=== PATIENT | male | born 1945 | race Caucasian/White ===

== ENCOUNTER 2016-09-07 18:08 | Inpatient (IN) | payer OTHER, MEDICARE ==
[~2016-09-07] VITALS: Ht 182.9 cm; Wt 104.3 kg
--- NOTE | 2016-09-07 18:20 | NUR ---
PT TO ED FOR ABD PAIN AND VOMITING, REPORTING HE ATE A BAGEL AND CREAM CHEESE AROUND 7 AM YESTERDAY MORNING AND BEGAN VOMITING SHORTLY AFTER 8AM. REPORTING HE VOMITING IN EXCESS OF TEN TIMES. NO VOMITING TODAY BUT STATING HE HAS BEEN HAVING SIG ABD PAIN, PT REPORTING PAIN "FEELS BETTER DEPENDING ON WHAT POSITION IM IN." LNBM YESTERDAY. DENIES BLACK OR BLOODY STOOLS. DENIES CP, SOB, [place], ARM PAIN, NECK/JAW PAIN.
--- NOTE | 2016-09-07 18:25 | NUR ---
REVIEWED PATIENT WITH DR JOSHI, DR JOSHI REQUESTING A NON-CONTRAST CT OF THE ABD BE ORDERED.
[2016-09-07 18:56] LABS: ABSOLUTE BASOPHIL COUNT 0 /CUMM (0.0-0.2); ABSOLUTE EOSINOPHIL COUNT 0 /CUMM (0.0-0.7); ABSOLUTE LYMPH COUNT 0.9 /CUMM (1.2-3.4); ABSOLUTE MONOCYTE COUNT 0.8 /CUMM (0.10-0.60); BASOPHIL % 0 % (0.0-2.0); EOSINOPHIL % 0 % (0-5); HEMATOCRIT 46.6 % (42-52); MEAN CORPUSCULAR HGB 32.7 PG (27.0-31.0); MEAN CORPUSCULAR HGB CONC 33.5 G/DL (33.0-37.0); MEAN CORPUSCULAR VOLUME 97.6 FL (80.0-94.0); MEAN PLATELET VOLUME 8.9 FL (7.4-10.4); PLATELET COUNT 231 /CUMM (130-400); RBC DISTRIBUTION WIDTH 13.6 % (11.5-14.5); RED BLOOD CELL CT 4.77 /CUMM (4.70-6.10); WHITE BLOOD CELL COUNT 17.7 /CUMM (4.8-10.8)
[2016-09-07 18:57] LABS: GRANULOCYTE % 90.2 % (42.2-75.2)
--- NOTE | 2016-09-07 19:55 | ED GI/GU/ABDOMINAL COMPLAINT ---
History of Present Illness General Chief Complaint: Abdominal Pain/Flank Pain Stated Complaint: VOMITING YESTERDAY, ABD PAIN Source: patient, family Exam Limitations: no limitations Vital Signs & Intake/Output Vital Signs & Intake/Output Vital Signs Date Time Temp Pulse Resp B/P Pulse O2 O2 Flow FiO2 Ox Delivery Rate 09/07 2351 98.3 67 20 150/64 92 Room Air 09/07 2256 99.1 75 18 144/68 09/07 2223 99.1 75 18 144/68 94 Room Air 09/07 2031 99.5 72 18 148/71 93 Room Air 09/07 1820 98.7 101 18 126/76 99 Room Air ED Intake and Output 09/08 0000 09/07 1200 Intake Total 1000 Output Total Balance 1000 Intake, IV 1000 Patient 230 lb Weight Allergies Coded Allergies: No Known Allergies (09/07/16) Reconcile Medications Amlodipine Besylate/Benazepril (Amlodipine-Benazepril 5-40 MG) 5 MG-40 MG CAPSULE 1 CAP PO DAILY HTN (Reported) Aspirin (Aspirin*) 81 MG TAB.CHEW 1 TAB PO DAILY CARDIAC (Reported) Diclofenac Sodium 75 MG TABLET.DR 1 TAB PO BID PAIN (Reported) Fluoxetine HCl 20 MG CAPSULE 1 CAP PO DAILY MENTAL HEALTH (Reported) Metoprolol Tartrate 25 MG TABLET 1 TAB PO BID HTN (Reported) Triage Note: PT TO ED FOR ABD PAIN AND VOMITING, REPORTING HE ATE A BAGEL AND CREAM CHEESE AROUND 7 AM YESTERDAY MORNING AND BEGAN VOMITING SHORTLY AFTER 8AM. REPORTING HE VOMITING IN EXCESS OF TEN TIMES. NO VOMITING TODAY BUT STATING HE HAS BEEN HAVING SIG ABD PAIN, PT REPORTING PAIN "FEELS BETTER DEPENDING ON WHAT POSITION IM IN." LNBM YESTERDAY. DENIES BLACK OR BLOODY STOOLS. DENIES CP, SOB, [place], ARM PAIN, NECK/JAW PAIN. Triage Nurses Notes Reviewed? yes Onset: Abrupt Duration: day(s): (2) Timing: multiple episodes today Quality/Severity: fullness, severe Location: epigastric Radiation: no radiation Activities at Onset: eating Prior Abdominal Problems: none Modifying Factors: Worsens With: other (LYING ON HIS SIDES). Associated Symptoms: abdominal pain, nausea/vomiting, DISTENTION HPI: This 71-year-old male who presents to the ER with chief complaint of abdominal pain nausea and vomiting that began yesterday after eating a bagel with cream cheese. He reports feeling like a rock in his stomach 30 minutes after eating and then within half an hour had multiple episodes of wretching and vomiting. By 2 pm the vomiting had stopped but states the pain has been constant. He was only able to tolerate small sips of fluid at a time. No fever or chills. Last BM yesterday. Past History Travel History Traveled to [place] past 21 day No Medical History Any Pertinent Medical History? see below for history Neurological: NONE EENT: NONE Cardiovascular: NONE, hypertension Respiratory: NONE Gastrointestinal: ACID REFLUX Hepatic: NONE Renal: NONE Musculoskeletal: NONE Psychiatric: NONE Endocrine: NONE Blood Disorders: NONE Cancer(s): NONE Surgical History Surgical History: none Psychosocial History What is your primary language [place] Tobacco Use: Never used ETOH Use: heavy use (2 DRINKS PER NIGHT) Illicit Drug Use: denies illicit drug use Family History Hx Contributory? No Review of Systems Review of Systems Constitutional: Denies: chills, fever. EENTM: Reports: no symptoms. Respiratory: Denies: cough, short of breath. Cardiovascular: Reports: no symptoms. GI: Reports: abdominal pain, nausea, vomiting. Denies: distention. Genitourinary: Reports: no symptoms. Musculoskeletal: Denies: back pain. Skin: Reports: no symptoms. Neurological/Psychological: Reports: no symptoms. Hematologic/Endocrine: Denies: bruising, bleeding, polyuria, polydipsia. Immunologic/Allergic: Denies: splenectomy. All Other Systems: Reviewed and Negative Physical Exam Physical Exam General Appearance: well developed/nourished, alert, awake, moderate distress Head: atraumatic, normal appearance Eyes: Bilateral: normal appearance, PERRL, EOMI. Ears, Nose, Throat, Mouth: hearing grossly normal, DRY MUCUS MEMBRANES Neck: normal inspection, supple, full range of motion Respiratory: normal breath sounds, chest non-tender, no respiratory distress Cardiovascular: tachycardia Peripheral Pulses: 2+ radial (R), 2+ radial (L) Gastrointestinal: FIRM, DISTENDED, TYMPANIC, PAIN EPIGASTRIC NEGATIVE MURPHYS Extremities: normal range of motion Neurologic/Psych: no motor/sensory deficits, awake, alert, oriented x 3 Skin: intact, normal color, warm/dry Core Measures ACS in differential dx? No Severe Sepsis Present: No Septic Shock Present: No Progress Differential Diagnosis: biliary colic, cholecystitis, gastritis, hepatitis, hernia, pancreatitis, PUD/GERD, SBO, ILEUS Plan of Care: Orders Procedure Date/time Status Nothing by Mouth 09/08 B Active MRI-ABDOMEN 09/08 08 Active XRY-PORTABLE CHEST XRAY 09/08 06 Active HIGH SENSITIVITY CRP 09/08 06 Active HEPATIC FUNCTION PANEL 09/08 06 Active CBC WITHOUT DIFFERENTIAL 09/08 0600 Active BASIC ELECTROLYTES PLUS BUN&CR 09/08 06 Active Vital Signs 09/07 2324 Active Teach/Educate 09/07 2324 Active Pain Treatment and Response 09/07 2324 Active Nutritional Intake, Monitor 09/07 2324 Active Isolation 09/07 2324 Active Intake & Output 09/07 2324 Active Patient Care Conference 09/07 2324 Active Activity/Ambulation 09/07 2324 Active Pathway - chart 09/08 2203 Active House Staff 09/08 2203 Active Patient Data 09/07 2106 Active Admit to inpatient 09/07 2101 Active Vital Signs 09/07 2101 Active Code Status 09/07 2101 Active Intake & Output 09/07 2100 Active Add-on Test (ER Only) 09/08 2051 Active Add-on Test (ER Only) 09/07 204 Active LIPASE 09/07 1837 Complete LDH (LACT ACID DEHYDROGENASE) 09/07 1837 Complete DIRECT BILIRUBIN 09/07 1837 Complete AMYLASE 09/07 1837 Complete TROPONIN LEVEL 09/07 1821 Complete LACTIC ACID 09/07 1821 Complete COMPREHENSIVE METABOLIC PANEL 09/07 1821 Complete CBC WITHOUT DIFFERENTIAL 09/07 1821 Complete EKG 09/07 1811 Active XRY-PORTABLE CHEST XRAY 09/07 UNK Active Lab Add-on Test 09/07 UNK Active CIWA 09/07 UNK Active Current Medications Sig/Mariana Start time Last Medication Dose Stop Time Status Admin Enoxaparin Sodium 40 MG DAILY 09/08 1000 AC (Lovenox) Folic Acid 1 MG DAILY 09/08 1000 AC (Folic Acid) Lorazepam 0 Q1P PRN 09/07 2300 AC (Ativan) Thiamine HCl 500 MG ONCE ONE 09/07 2300 CAN (Vitamin B-1) 09/07 230 Diphenhydramine HCl 25 MG Q6P PRN 09/07 2215 AC (Benadryl) Hydromorphone HCl 0.5 MG Q4P PRN 09/07 2215 AC (Dilaudid) Ondansetron HCl 4 MG Q6P PRN 09/07 2214 AC (Zofran) Laboratory Tests 09/07/162120: Lactic Acid Cancelled 09/07/16 1837: Anion Gap 13, Estimated GFR > 60, BUN/Creatinine Ratio 20.0, Glucose 110 H, Lactic Acid 1.4, Calcium 9.0, Total Bilirubin 1.4 H, Direct Bilirubin 0.4, AST 200 H, ALT 364 H, Alkaline Phosphatase 84, Lactate Dehydrogenase 907 H, Troponin I 0.02, Total Protein 7.0, Albumin 4.0, Globulin 3.0, Albumin/Globulin Ratio 1.3, Amylase 515 H, Lipase 7376 H, CBC w Diff NO MAN DIFF REQ, RBC 4.77, MCV 97.6 H, MCH 32.7 H, RDW 13.6, MPV 8.9, Gran % 90.2 H, Lymphocytes % 5.2 L, Monocytes % 4.6, Eosinophils % 0, Basophils % 0 L, Absolute Granulocytes 16.0 H, Absolute Lymphocytes 0.9 L, Absolute Monocytes 0.8 H, Absolute Eosinophils 0, Absolute Basophils 0, PUBS MCHC 33.5 CT SCAN CONSISTENT WITH PANCREATITITS/PERIPANCREATIC FLUID COLLECTIONS. AMYLASE /LIPASE ADDED ON. IV MORPHINE GIVEN FOR PAIN CONTROL. NPO. ADMITTED TO HOSPITALIST SERVICE. 10:[address] SUMI COCHRAN FOR SURGICAL CONSULT. (MANDY LOVETT,JANET) Diagnostic Imaging: Viewed by Me: CT Scan, Ultrasound. Discussed w/RAD: CT Scan, Ultrasound. Radiology Impression: PATIENT: ILENE BRYANT PRESENT AGE: 71 PATIENT ACCOUNT NO: [id number] : 43 LOCATION: [facility] ORDERING PHYSICIAN: JANET GALVAN MD SERVICE DATE: 09/07/16 EXAM TYPE: US - US- LIMITED ABDOMEN EXAMINATION: US ABDOMEN LIMITED CLINICAL INFORMATION: Pancreatitis and elevated LFTs. Assess for gallstones.. COMPARISON: CT scan of the abdomen obtained earlier 09/07/2016. TECHNIQUE: Real-time imaging of the right upper quadrant abdominal viscera. FINDINGS: PANCREAS: The pancreas is not visualized due to overlying bowel gas and edema (demonstrated on CT scan). LIVER : The liver demonstrates normal size, contour and echogenicity. No focal lesion or intrahepatic biliary duct dilatation. GALLBLADDER: The gallbladder is poorly distended. There are multiple echogenic calculi which appear impacted. Shadowing from the stones makes differentiation of the individual stones difficult. There is echogenic bile. The gallbladder wall is slightly thickened measuring 0.3 cm. There is no definite pericholecystic fluid. COMMON BILE DUCT: Normal in caliber measuring 0.5 cm in diameter. RIGHT KIDNEY: There is no hydronephrosis. There are no renal calculi or focal parenchymal lesions. The kidney measures 11.3 cm in maximum dimension. FREE FLUID: Difficult to assess due to body habitus and bowel gas. IMPRESSION: 1. The study demonstrates multiple echogenic gallbladder calculi. There is echogenic bile and the gallbladder wall is slightly thickened. 2. The common bile duct has normal caliber. DICTATED BY: NATALIYA GARRISON MD DATE/ TIME DICTATED:09/07/162150 CASH CROP FARMER:KATYA DATE/TIME TRANSCRIBED: 09/07/162150 CONFIDENTIAL, DO NOT COPY WITHOUT APPROPRIATE AUTHORIZATION. < Electronically signed in Other Vendor System> SIGNED BY: NATALIYA GARRISON MD [id number], PATIENT: ILENE BRYANT PRESENT AGE: 71 PATIENT ACCOUNT NO: [id number] : 43 LOCATION: [facility] ORDERING PHYSICIAN: LAURO JOSHI DO SERVICE DATE: 09/07/16 EXAM TYPE: CAT - CT ABD & PELVIS W/O IV CONTRAS EXAMINATION: CT ABDOMEN AND PELVIS WITHOUT CONTRAST CLINICAL INFORMATION: 71-year-old male patient who has been vomiting for 24 hours. Abdominal pain. COMPARISON: None pertinent. TECHNIQUE: Multidetector volumetric imaging was performed from the superior aspect of the liver through the pubic symphysis. Sagittal and coronal reformatted images were obtained on the technologist's workstation. DLP: 683 mGy-cm FINDINGS: Insurance Collector view: The bowel pattern is consistent with a so-called "colon cut off" sign seen in patients with acute pancreatitis. Please note that the study is compromised by the lack of IV contrast. LUNG BASES: The visualized lung bases are unremarkable. There is no pleural effusion. The patient has a small hiatal hernia. LIVER, GALLBLADDER, AND BILIARY TREE: The liver is normal in size, shape, and attenuation. No biliary ductal dilatation is present. A 1 cm hypodense nodule in Couinaud segment 5 the liver cannot be characterized further. The gallbladder is unremarkable with no evidence of radiopaque gallstones, gallbladder wall thickening, or obvious pericholecystic inflammatory changes. PANCREAS: The pancreas is normal in size. However, there is an abnormal amount of peripancreatic effusion extending to the transverse mesocolon, the paraduodenal space as well as the anterior pararenal spaces of the retroperitoneum. Pancreatic fluid also extends towards the right inguinal canal. Small amounts of ascites are present in the peritoneal cavity. There is no pseudocyst formation. Enhancement characteristics of the pancreas would require IV contrast. SPLEEN: Unremarkable. ADRENAL GLANDS: Unremarkable. KIDNEYS AND URETERS: The kidneys are normal in size, shape, and attenuation. No hydronephrosis, hydroureter, or calculi seen. No perinephric stranding. BLADDER: Partially filled. GASTROINTESTINAL TRACT: Numerous diverticula arise from the sigmoid and descending colon. The colon cut off sign is caused by dissection of pancreatic enzymes to the level of the true splenic flexure. Series 2, image 45. The stomach, small bowel, and appendix are normal. ABDOMINAL WALL: A small fat- containing umbilical hernia is present. LYMPH NODES: No bulk adenopathy is seen. A small lymph node is adjacent to the true splenic flexure. Series 602, image 60. VASCULAR: Unremarkable. PELVIC VISCERA: Unremarkable. OSSEOUS STRUCTURES: There is nearly complete fusion of the vertebral bodies at L3-L4 due to disc disease. There is partial sacralization of L5. IMPRESSION: Acute pancreatitis with spread of pancreatic enzymes to multiple sites as described above. DICTATED BY: SAMIRA COLEMAN MD DATE/TIME DICTATED:09/07/162004 CASH CROP FARMER: KATYA DATE/TIME TRANSCRIBED:09/07/162004 CONFIDENTIAL, DO NOT COPY WITHOUT APPROPRIATE AUTHORIZATION. <Electronically signed in Other Vendor System> SIGNED BY: SAMIRA COLEMAN MD 09/07/162023 Initial ED EKG: none Departure Departure Time of Disposition: 2101 Disposition: STILL A PATIENT Condition: Stable Clinical Impression Primary Impression: Pancreatitis Secondary Impressions: Gallstones, Transaminitis Referrals: JACKY LORENZANA MD (PCP/Family) Departure Forms: Customer Survey General Discharge Information Admission Note Spoke With: DG VELAZQUEZ MD Documentation of Exam: Documentation of any treatments & extenuating circumstances including Concerns Regarding Discharge (functional status, medication knowledge or non-compliance, living conditions, etc.) that warrant an admission rather than observation: [IV FLUIDS, PAIN CONTROL, NPO, MONITOR I/O, F/U MRCP ABDOMEN, IV ABX ORDERED BY HOUSESTAFF, SURGICAL CONSULT DR JONAS]
--- NOTE | 2016-09-07 20:09 | NUR ---
PT TO ROOM 10, SEEN BY DR GALVAN
--- NOTE | 2016-09-07 20:24 | CT SCAN REPORT ---
EXAMINATION: CT ABDOMEN AND PELVIS WITHOUT CONTRAST CLINICAL INFORMATION: 71-year-old male patient who has been vomiting for 24 hours. Abdominal pain. COMPARISON: None pertinent. TECHNIQUE: Multidetector volumetric imaging was performed from the superior aspect of the liver through the pubic symphysis. Sagittal and coronal reformatted images were obtained on the technologist's workstation. DLP: 683 mGy-cm FINDINGS: Supervisor Industrial Garment view: The bowel pattern is consistent with a so-called "colon cut off" sign seen in patients with acute pancreatitis. Please note that the study is compromised by the lack of IV contrast. LUNG BASES: The visualized lung bases are unremarkable. There is no pleural effusion. The patient has a small hiatal hernia. LIVER, GALLBLADDER, AND BILIARY TREE: The liver is normal in size, shape, and attenuation. No biliary ductal dilatation is present. A 1 cm hypodense nodule in Couinaud segment 5 the liver cannot be characterized further. The gallbladder is unremarkable with no evidence of radiopaque gallstones, gallbladder wall thickening, or obvious pericholecystic inflammatory changes. PANCREAS: The pancreas is normal in size. However, there is an abnormal amount of peripancreatic effusion extending to the transverse mesocolon, the paraduodenal space as well as the anterior pararenal spaces of the retroperitoneum. Pancreatic fluid also extends towards the right inguinal canal. Small amounts of ascites are present in the peritoneal cavity. There is no pseudocyst formation. Enhancement characteristics of the pancreas would require IV contrast. SPLEEN: Unremarkable. ADRENAL GLANDS: Unremarkable. KIDNEYS AND URETERS: The kidneys are normal in size, shape, and attenuation. No hydronephrosis, hydroureter, or calculi seen. No perinephric stranding. BLADDER: Partially filled. GASTROINTESTINAL TRACT: Numerous diverticula arise from the sigmoid and descending colon. The colon cut off sign is caused by dissection of pancreatic enzymes to the level of the true splenic flexure. Series 2, image 45. The stomach, small bowel, and appendix are normal. ABDOMINAL WALL: A small fat-containing umbilical hernia is present. LYMPH NODES: No bulk adenopathy is seen. A small lymph node is adjacent to the true splenic flexure. Series 602, image 60. VASCULAR: Unremarkable. PELVIC VISCERA: Unremarkable. OSSEOUS STRUCTURES: There is nearly complete fusion of the vertebral bodies at L3-L4 due to disc disease. There is partial sacralization of L5. IMPRESSION: Acute pancreatitis with spread of pancreatic enzymes to multiple sites as described above.
--- NOTE | 2016-09-07 20:31 | NUR ---
IV EST AND IVF INFUSING. PER DR GALVAN REPEAT LACTIC NOT NEEDED.
--- NOTE | 2016-09-07 20:50 | NUR ---
DR GALVAN AT BEDSIDE TO DISCUSS RESULTS/PLAN
[2016-09-07] MEDS ORDERED: DICLOFENAC SODI75 M2 PO (21:39)
[2016-09-07] MEDS ORDERED: FLUOXETINE HCL20 M2 PO (21:40)
[2016-09-07] MEDS ORDERED: ASPIRIN81 M4 PO (21:40)
[2016-09-07] MEDS ORDERED: METOPROLOL TART25 M1 PO (21:40)
[2016-09-07] MEDS ORDERED: AMLODIPINE-BEN1 EAC1 PO (21:40)
--- NOTE | 2016-09-07 21:51 | History & Physical ---
NEIDA HOLLOWAY 09/07/16 2151: General Information and HPI MD Statement: I have seen and personally examined ILENE BRYANT and documented this H&P. The patient is a 71 year old M who presented with a patient stated chief complaint of abdominal pain, nausea and vomiting. Source of Information: patient Exam Limitations: no limitations History of Present Illness: This is a 71-year-old man with past medical history significant for hypertension, acid reflux, chronic everyday alcohol user presented to emergency department with chief complaint of abdominal pain, bloating, nausea, vomiting for 1 day. Patient reports sudden onset abdominal pain for one day. He reports epigastric discomfort, bloating sensation, not radiating to back, 9 out of 10 pain, decreased with leaning forward. Patient also reports nausea and nonbloody emesis. He denies any fever, chills. He denies any diarrhea. He states he ate a bagel and shortly after started having symptoms above. He has no history of same inthe past. He denies any fever or flulike illness. Patient denies any chest pain, racing of heart, shortness of breath, constipation, diarrhea. Denies any change in bladder or bowel habits. Denies any headache, numbness, sensory changes, tingling sensation, weakness. He denies any recent changes to medications. Denies any increased intake of alcohol. Denies any other substance abuse. Denies any past medical history significant for gallstones. Denies any history of hypertriglyceridemia. Denies any other recent infections. Denies any autoimmune history. Denies any trauma to the abdomen. Denies any Scorpion sting. Denies any sick contacts or travel history. Allergies/Medications Allergies: Coded Allergies: No Known Allergies (09/07/16) Home Med list Amlodipine Besylate/Benazepril (Amlodipine-Benazepril 5-40 MG) 5 MG-40 MG CAPSULE 1 CAP PO DAILY HTN (Reported) Aspirin (Aspirin*) 81 MG TAB.CHEW 1 TAB PO DAILY CARDIAC (Reported) Diclofenac Sodium 75 MG TABLET.DR 1 TAB PO BID PAIN (Reported) Fluoxetine HCl 20 MG CAPSULE 1 CAP PO DAILY MENTAL HEALTH (Reported) Metoprolol Tartrate 25 MG TABLET 1 TAB PO BID HTN (Reported) Compliance With Home Meds: GOOD Past History Travel History Traveled to [place] past 21 day No Medical History Neurological: NONE EENT: NONE Cardiovascular: NONE, hypertension Respiratory: NONE Gastrointestinal: ACID REFLUX Hepatic: NONE Renal: NONE Musculoskeletal: NONE Psychiatric: NONE Endocrine: NONE Blood Disorders: NONE Cancer(s): NONE Surgical History Surgical History: none Past Family/Social History Psychosocial History Smoking Status: Never Smoked ETOH Use: heavy use Illicit Drug Use: denies illicit drug use Review of Systems Review of Systems Constitutional: Denies: see HPI, chills, fever, malaise, weakness. EENTM: Denies: no symptoms. Cardiovascular: Denies: chest pain, edema, palpitations, syncope. Respiratory: Denies: cough, hemoptysis, orthopnea, short of breath, sputum production, stridor, wheezing. GI: Reports: abdominal pain, bloating, distention, nausea, vomiting. Denies: constipation, diarrhea, melena, bloody stool. Genitourinary: Denies: no symptoms, discharge, frequency, hematuria. Musculoskeletal: Denies: back pain, joint pain. Skin: Denies: no symptoms. Neurological/Psychological: Denies: anxiety, depressed, dementia, emotional problems, headache, numbness, tingling, tremors. Exam & Diagnostic Data Last 24 Hrs of Vital Signs/I&O Vital Signs Date Time Temp Pulse Resp B/P Pulse O2 O2 Flow FiO2 Ox Delivery Rate 09/07 2351 98.3 67 20 150/64 92 Room Air 09/07 2256 99.1 75 18 144/68 09/07 2223 99.1 75 18 144/68 94 Room Air 09/07 2031 99.5 72 18 148/71 93 Room Air 09/07 1820 98.7 101 18 126/76 99 Room Air Intake & Output 09/08 0800 09/08 0000 09/07 1600 Intake Total 1000 Output Total Balance 1000 Intake, IV 1000 Patient 104.326 kg Weight Physical Exam General Appearance Alert, Oriented X3, Cooperative, No Acute Distress Skin No Rashes, No Breakdown HEENT Atraumatic, PERRLA, EOMI, Mucous Membr. moist/pink Neck Supple, No JVD Lymphatic Axillary nl, Cervical nl Cardiovascular Regular Rate, Normal S1, Normal S2 Lungs Clear to Auscultation Abdomen Normal Bowel Sounds, epigastric tenderness on examination Bukcley sign negative Neurological Normal Speech, Strength at 5/5 X4 Ext, Normal Tone, Sensation Intact, Cranial Nerves 3-12 NL, Reflexes 2+ Extremities No Clubbing, No Cyanosis, No Edema Vascular Normal Pulses Assessment/Plan Assessment: This is a 71-year-old man with past medical history significant for hypertension, acid reflux, chronic everyday alcohol user presented to emergency department with chief complaint of abdominal pain, bloating, nausea, vomiting for 1 day. Vitals in the emergency room-afebrile, tachycardic 101, respiratory rate 18, blood pressure 120/60. Abdomen appears distended but soft. Bowel sounds are present but decreased in all 4 quadrants. He does have some achy discomfort upon palpation in the epigastric area. Buckley sign negative. Labs-leukocytosis 17.7. Liver function tests-total bilirubin 1.4, AST 200, ALT 364, alkaline phosphatase 84. Amylase 5 and 5 and lipase 7376. -CT abdomen pelvis consistent with acute pancreatitis with an unusual amount. Pancreatic effusion extending to the transverse mesocolon, periduodenal space, anterior pararenal space of the retroperitoneum and extending towards right inguinal canal. There is a small amount of associated ascites present in the peritoneal cavity. -A right upper quadrant ultrasound demonstrates multiple echogenic gallbladder calculi and thickening of the gallbladder wall. Common bile duct appears to have a normal caliber i.e. is not distended. Problem list 1. Acute pancreatitis 2. Ascending cholangitis 3. Hypertension 4. Acid reflux 5. Chronic everyday use of alcohol Acute pancreatitis patient presented to emergency department with chief complaint of abdominal pain , bloating, nausea, vomiting for 1 day. Patient reports sudden onset abdominal pain for one day. He reports epigastric discomfort, bloating sensation, not radiating to back, 9 out of 10 pain, decreased with leaning forward. Patient also reports nausea and nonbloody emesis. leukocytosis 17.7.Liver function tests-total bilirubin 1.4, AST 200, ALT 364, alkaline phosphatase 84. Amylase 5 and 5 and lipase 7376. -CT abdomen pelvis consistent with acute pancreatitis with an unusual amount. Pancreatic effusion extending to the transverse mesocolon, periduodenal space, anterior pararenal space of the retroperitoneum and extending towards right inguinal canal. There is a small amount of associated ascites present in the peritoneal cavity. -A right upper quadrant ultrasound demonstrates multiple echogenic gallbladder calculi and thickening of the gallbladder wall. Common bile duct appears to have a normal caliber i.e. is not distended. * Admitted to general medicine floor for further management of acute pancreatitis. * Monitor vitals every shift. * Maintain oxygen saturation Above 90 percent. * Supportive management * Bowel rest * Nothing by mouth * IV fluid resuscitation-Ringer lactate 200 mL per upper * Pain medication * Dilaudid when necessary for pain * zofran if necessary for vomiting * Surgical consult * bisap score 2 on admission Ascending cholangitis admitted for pancreatitis , transaminitis and gallbladder calculi with gallbladder wall thickening. He has a normal caliber common bile duct on ultrasound. White count of 17,000 and a bili of 1.4. -abdominal ultrasound and a CT scan of the abdomen and pelvis- There is concern for cholecystitis/ascending cholangitis. -would cover with antibiotics, currently on Unasyn. -Recommend MRCP tomorrow, GI consult in the morning for possible ERCP -Follow white count and LFTs -npo Hypertension We will hold antihypertensives for now Chronic alcohol user On [facility] protocol Thiamine Folate When necessary Ativan if required Monitor for alcohol withdrawal symptoms DVT prophylaxis-Lovenox Full code Nothing by mouth Pain medication-Dilaudid As Ranked By This Provider Problem List: 1. Pancreatitis 2. Gall stones 3. Transaminitis 4. Abdominal pain Core Measures/Miscellaneous Acute Coronary Syndrome ACS Diagnosis: No Cerebrovascular Accident CVA/TIA Diagnosis: No Congestive Heart Failure CHF Diagnosis: No Venous Thromboembolism VTE Risk Factors: Age > 40 No [facility] VTE prophylaxis d/t: No contraindications No VTE Pharm Prophylaxis d/t: No contraindications VTE Diagnosis: No VTE Type: NONE VTE Confirmed by (Test): NONE Severe Sepsis Severe Sepsis Present: No Septic Shock Septic Shock Present: No Miscellaneous Documentation Attending Case Discussed With: DG VELAZQUEZ MD Primary Care Physician: JACKY LORENZANA MD Patient sees these Specialists none Level of Patient Care: General Medicine ALLISON LOVETT,LASHONDA 09/07/16 0035: Resident Review Statement Resident Statement: examined this patient, discussed with internet systems administrator, agreed with internet systems administrator, discussed with family, reviewed EMR data (avail), discussed with nursing , discussed with case mgmt, reviewed images, amended to note Other Findings: Ilene is a 71-year-old man with a medical history of hypertension, and acid reflux, chronic everyday use of alcohol 1-2 drinks, who presents with 24- hour history of nausea followed by multiple episodes of nonbloody emesis, and significant epigastric abdominal discomfort and bloating. He also describes eructation. Denies fevers chills chest pain shortness of breath neck pain or jaw claudication, diarrhea, steatorrhea or any other symptoms as reviewed in detail. No recent changes to medications, denies any increased alcohol intake. Denies any history of alcohol which all her seizures. Denies any other substance abuse. Presently he is afebrile, initially tachycardic 101 bpm, currently 96-7 bpm. Blood pressure is 150/64. Patient is 92% on room air. Physical examination patient is awake alert oriented 3, pupils are equally round and reactive to light, mouth and pharynx is normal, no lymphadenopathy. Heart sounds are present and normal. Lungs are clear to auscultation bilaterally. Abdomen appears distended but soft. Bowel sounds are present but decreased in all 4 quadrants. He does have some achy discomfort upon palpation in the epigastric area. Buckley sign negative. Pulses are good in all 4 extremities. No peripheral edema present. Labs notable for white count of 17, 000. Total bili is 1.4, fracture bilirubin insurance injured bilirubin is 1, direct bili 0.4. AST is 200, ALT is 364. Alkaline phosphatase normal. LDH is 907. Amylase lipase are obviously super high.. CT abdomen pelvis consistent with acute pancreatitis with an unusual amount. Pancreatic effusion extending to the transverse mesocolon, periduodenal space, anterior pararenal space of the retroperitoneum and extending towards right inguinal canal. There is a small amount of associated ascites present in the peritoneal cavity. A right upper quadrant ultrasound demonstrates multiple echogenic gallbladder calculi and thickening of the gallbladder wall. Common bile duct appears to have a normal caliber i.e. is not distended. This patient clearly has acute pancreatitis, etiology of which is most likely alcohol usage, however the possibility of choledocholithiasis must be considered. Concerning is the patient's white count and the unusual amount of abdominal third spacing. We are concerned about ascending cholangitis. - Problems - Acute pancreatitis ascending cholangitis Hypertension Chronic everyday use of alcohol Acid reflux - Plan - Keep NPO LRS @ 200cc/hr Avoid morphine Dilaudid prn for pain Urgent surgical evaluation Gi consult in am Hold anti-htn meds for now CIWA Ativan per CIWA Thiamine, folate Lovenox FULL code DG VELAZQUEZ 09/08/16 0517: Attending MD Review Statement Attending Statement Attending MD Statement: examined this patient, discuss w/resident/PA/SEATER GRINDER, agreed w/resident/PA/SEATER GRINDER, reviewed EMR data (avail), reviewed images, amended to note Attending Assessment/Plan: CC: Nausea, vomiting, abdominal pain PMH: Hypertension, colonic polyps, significant alcohol history Patient comes with nausea, vomiting started yesterday along with abdominal pain started today. Vomitings nonbilious, nonbloody, no diarrhea. Abdominal pain diffuse all over, nonradiating. No fever or chills, no diarrhea, no similar complaints in the past. Drinks 1-2 drinks of beer and vodka every day. Vitals: T max 99.5, pulse at presentation 101, RR, BP, O2 saturation acceptable range. On exam: A O 3, neck supple, no JVD, no lymphadenopathy, mucosa dry, no focal neurological deficit, no dependent edema, CVS: S1-S2, RRR. RS: Clear to auscultate bilaterally. Abdomen: Tense, tender, distended, unable to do Buckley, no guarding or rigidity, bowel sounds present. No obvious skin inflammation or rash. Labs: WBC 17.7, neutrophils 90%, total bilirubin 1.4, AST 200, ALT 364, LDH 97, lipase 7376. Otherwise BMP unremarkable. CT abdomen and pelvis: Acute pancreatitis : The pancreas is normal in size. However, there is an abnormal amount of peripancreatic effusion extending to the transverse mesocolon, the paraduodenal space as well as the anterior pararenal spaces of the retroperitoneum. Pancreatic fluid also extends towards the right inguinal canal. Small amounts of ascites are present in the peritoneal cavity. Ultrasound abdomen: 1. The study demonstrates multiple echogenic gallbladder calculi. There is echogenic bile and the gallbladder wall is slightly thickened. 2. The common bile duct has normal caliber. A and P #1 acute pancreatitis: Currently hemodynamically stable, peripheral pulses perfusion normal, extremity warm to touch. CT abdomen shows extensive pancreatitis. Even though patient has significant alcohol history, liver enzymes were leaning towards gallstone, USG obtained which confirmed the finding of gallstone. aggressive hydration with RL at 200mL per hour, check CRP today and tomorrow to monitor inflammatory markers, x-ray chest to rule out pleural effusion, when necessary Zofran for vomiting, adequate pain control, nothing by mouth except meds. Consult GI in a.m. ultrasound shows poorly distended gallbladder with possibly adenitis wall, alkaline phosphatase is 84, but significant transaminitis. In this situation, worried about cholecystitis and cholangitis, consult surgery. MRCP in a.m. #2 significant alcohol history, watch for withdrawal, when necessary Ativan according to CIWA protocol, high-dose thiamine, , folic acid, , continue hydration with Ringer lactate. #3 home medications from tomorrow, amlodipine, aspirin, fluoxetine, metoprolol once vitals are stable overnight.
--- NOTE | 2016-09-07 21:59 | ULTRASOUND REPORT ---
EXAMINATION: US ABDOMEN LIMITED CLINICAL INFORMATION: Pancreatitis and elevated LFTs. Assess for gallstones.. COMPARISON: CT scan of the abdomen obtained earlier 09/07/2016. TECHNIQUE: Real-time imaging of the right upper quadrant abdominal viscera. FINDINGS: PANCREAS: The pancreas is not visualized due to overlying bowel gas and edema (demonstrated on CT scan). LIVER: The liver demonstrates normal size, contour and echogenicity. No focal lesion or intrahepatic biliary duct dilatation. GALLBLADDER: The gallbladder is poorly distended. There are multiple echogenic calculi which appear impacted. Shadowing from the stones makes differentiation of the individual stones difficult. There is echogenic bile. The gallbladder wall is slightly thickened measuring 0.3 cm. There is no definite pericholecystic fluid. COMMON BILE DUCT: Normal in caliber measuring 0.5 cm in diameter. RIGHT KIDNEY: There is no hydronephrosis. There are no renal calculi or focal parenchymal lesions. The kidney measures 11.3 cm in maximum dimension. FREE FLUID: Difficult to assess due to body habitus and bowel gas. IMPRESSION: 1. The study demonstrates multiple echogenic gallbladder calculi. There is echogenic bile and the gallbladder wall is slightly thickened. 2. The common bile duct has normal caliber.
--- NOTE | 2016-09-07 22:24 | NUR ---
MIVF INFUSING, PT AWARE OF ORDERS FOR ZOFRAN/DILAUDID/BENADRYL AND REFUSES AT THIS TIME. AWAITING BED ASSIGNMENT.
--- NOTE | 2016-09-07 22:52 | NUR ---
PCXR IN PROGRESS
[2016-09-07 22:56] VITALS: BP 144/68
--- NOTE | 2016-09-07 23:02 | NUR ---
PHARMACY CALLED FOR THIAMINE, WILL BE DELIVERED AFTER MIXING. SEEN BY HOUSE STAFF. AWAITING BED ASSIGNMENT.
--- NOTE | 2016-09-07 23:05 | NUR ---
[facility] ASSIGNMENT [phone]
--- NOTE | 2016-09-07 23:08 | NUR ---
REPORT CALLED TO LUCIO ON 2N, ROOM IS READY AND FLOOR IS READY FOR PT
--- NOTE | 2016-09-07 23:30 | NUR ---
PT ARRIVED FROM ER VIA WC. AMBULATED TO BED WITHOUT DIFFICULTY, ORIENTED PT TO ROOM AND CALL SYSTEM. PT NPO, VERBALIZED UNDERSTANDING. MD UP TO ASSESS PT. WILL MONITOR.
[2016-09-07 23:51] VITALS: BP 150/64
--- NOTE | 2016-09-08 01:18 | Cons- General Surgery ---
DINESH CATHERINE PA-C 09/08/16 0101: General Information and HPI Consulting Request Date of Consult: 09/08/16 Requested By: DG VELAZQUEZ MD Reason for Consult: Abdominal pain, elevated LFTs Source of Information: patient, family, old records, PCP Exam Limitations: no limitations History of Present Illness: 71-year-old very pleasant gentleman here with complaints of epigastric abdominal pain and right upper quadrant abdominal pain for the last 24 hours associated with nausea and vomiting. Nonbloody vomiting. He states he ate a bagel and shortly after started having symptoms above. He has no history of same. He denies any fever or flulike illness. He was seen and evaluated in the ER today, had labs, abdominal ultrasound and a CT scan of the abdomen and pelvis. There is concern for cholecystitis/ascending cholangitis. He was admitted to medicine and we are asked to consult regarding his gallbladder disease. Allergies/Medications Allergies: Coded Allergies: No Known Allergies (09/07/16) Home Med List: Amlodipine Besylate/Benazepril (Amlodipine-Benazepril 5-40 MG) 5 MG-40 MG CAPSULE 1 CAP PO DAILY HTN (Reported) Aspirin (Aspirin*) 81 MG TAB.CHEW 1 TAB PO DAILY CARDIAC (Reported) Diclofenac Sodium 75 MG TABLET.DR 1 TAB PO BID PAIN (Reported) Fluoxetine HCl 20 MG CAPSULE 1 CAP PO DAILY MENTAL HEALTH (Reported) Metoprolol Tartrate 25 MG TABLET 1 TAB PO BID HTN (Reported) Past History Medical History Blood Transfusion Hx: No Neurological: NONE EENT: NONE Cardiovascular: NONE, hypertension Respiratory: NONE Gastrointestinal: ACID REFLUX Hepatic: NONE Renal: NONE Musculoskeletal: osteoarthritis Psychiatric: NONE Endocrine: NONE Blood Disorders: NONE Cancer(s): NONE LOG PEELER/Reproductive: NONE Surgical History Pertinent Surgical History: non-contributory Psychosocial History Where Do You Live? Home Services at Home: None Smoking Status: Former Smoker ETOH Use: 1-2 per day Illicit Drug Use: denies illicit drug use Review of Systems Review of Systems: Review of systems: See HPI, all other systems negative. Constitutional: No chills fever or weight loss HEENT: No visual changes no sore throat no congestion Cardiovascular: No chest pain ,palpitation , orthopnea or ankle swelling Skin: No jaundice no rashes Respiratory: No dyspnea cough sputum or hemoptysis GI: See HPI : No dysuria no hematuria Musclulo skeletal: No back pain no neck pain, Neurologic: No numbness no confusion Psych: No stress anxiety or depression,. Heme/endocrine: No bruising no bleeding no polyuria or polydipsia Immunology: No splenectomy or history of AIDS l. Exam & Diagnostic Data Vital Signs and I&O Vital Signs Date Time Temp Pulse Resp B/P Pulse O2 O2 Flow FiO2 Ox Delivery Rate 09/07 2351 98.3 67 20 150/64 92 Room Air 09/07 2256 99.1 75 18 144/68 09/07 2223 99.1 75 18 144/68 94 Room Air 09/07 2031 99.5 72 18 148/71 93 Room Air 09/07 1820 98.7 101 18 126/76 99 Room Air Intake & Output 09/08 0809/08 0000 09/07 1600 09/07 0809/07 0000 09/06 1600 Intake Total 1000 Output Total Balance 1000 Intake, IV 1000 Patient 230 lb Weight Physical Exam: Well-developed well-nourished person in no acute distress HEENT: Normal EENT exam Pharynx normal. No swelling or edema. Neck: Supple, no lymphadenopathy, normal range of motion without pain or tenderness Back: Nontender, no CVA tenderness. Cardiovascular: Regular rate and rhythms no murmurs, normal JVP Respiratory: Chest nontender. No respiratory distress. Breath sounds clear to auscultation bilaterally Abdomen: Soft, tenderness in the epigastrium and right upper quadrant. Nondistended, no appreciable organomegaly. Normal bowel sounds. No ascites Extremity: No edema, no calf tenderness to palpation, normal and equal pulses. Neuro: Alert oriented x3, motor sensory normal, cranial nerves II through XII grossly intact. Skin: No appreciable rash on exposed skin, skin is warm and dry. Psych: Mood and affect is normal, memory and judgment is normal. Last 24 Hours of Labs: Laboratory Tests 09/07 1837 Chemistry Sodium (137 - 145 mmol/L) 140 Potassium (3.5 - 5.1 mmol/L) 3.7 Chloride (98 - 107 mmol/L) 104 Carbon Dioxide (22 - 30 mmol/L) 24 Anion Gap (5 - 16) 13 BUN (9 - 20 mg/dL) 16 Creatinine (0.7 - 1.2 mg/dL) 0.8 Estimated GFR (>60 ml/min) > 60 BUN/Creatinine Ratio (7 - 25 %) 20.0 Glucose (65 - 99 mg/dL) 110 H Lactic Acid (0.7 - 2.1 mmol/L) Cancelled 1.4 Calcium (8.4 - 10.2 mg/dL) 9.0 Total Bilirubin (0.2 - 1.3 mg/dL) 1.4 H Direct Bilirubin (< 0.4 mg/dL) 0.4 AST (17 - 59 U/L) 200 H ALT (21 - 72 U/L) 364 H Alkaline Phosphatase (< 127 U/L) 84 Lactate Dehydrogenase (313 - 618 U/L) 907 H Troponin I (<0.11 ng/ml) 0.02 Total Protein (6.3 - 8.2 g/dL) 7.0 Albumin (3.5 - 5.0 g/dL) 4.0 Globulin (1.9 - 4.2 gm/dL) 3.0 Albumin/Globulin Ratio (1.1 - 2.2 %) 1.3 Amylase (30 - 110 U/L) 515 H Lipase (23 - 300 U/L) 7376 H Hematology CBC w Diff NO MAN DIFF REQ WBC (4.8 - 10.8 /CUMM) 17.7 H RBC (4.70 - 6.10 /CUMM) 4.77 Hgb (14.0 - 18.0 G/DL) 15.6 Hct (42 - 52 %) 46.6 MCV (80.0 - 94.0 FL) 97.6 H MCH (27.0 - 31.0 PG) 32.7 H RDW (11.5 - 14.5 %) 13.6 Plt Count (130 - 400 /CUMM) 231 MPV (7.4 - 10.4 FL) 8.9 Gran % (42.2 - 75.2 %) 90.2 H Lymphocytes % (20.5 - 51.1 %) 5.2 L Monocytes % (1.7 - 9.3 %) 4.6 Eosinophils % (0 - 5 %) 0 Basophils % (0.0 - 2.0 %) 0 L Absolute Granulocytes (1.4 - 6.5 /CUMM) 16.0 H Absolute Lymphocytes (1.2 - 3.4 /CUMM) 0.9 L Absolute Monocytes (0.10 - 0.60 /CUMM) 0.8 H Absolute Eosinophils (0.0 - 0.7 /CUMM) 0 Absolute Basophils (0.0 - 0.2 /CUMM) 0 PUBS MCHC (33.0 - 37.0 G/DL) 33.5 Imaging Results: PATIENT: ILENE BRYANT PRESENT AGE: 71 PATIENT ACCOUNT NO: [id number] : 43 LOCATION: [facility] ORDERING PHYSICIAN: JANET GALVAN MD SERVICE DATE: 09/07/16 EXAM TYPE: US - US-LIMITED ABDOMEN EXAMINATION: US ABDOMEN LIMITED CLINICAL INFORMATION: Pancreatitis and elevated LFTs. Assess for gallstones.. COMPARISON: CT scan of the abdomen obtained earlier 09/07/2016. TECHNIQUE: Real-time imaging of the right upper quadrant abdominal viscera. FINDINGS: PANCREAS: The pancreas is not visualized due to overlying bowel gas and edema (demonstrated on CT scan). LIVER: The liver demonstrates normal size, contour and echogenicity. No focal lesion or intrahepatic biliary duct dilatation. GALLBLADDER: The gallbladder is poorly distended. There are multiple echogenic calculi which appear impacted. Shadowing from the stones makes differentiation of the individual stones difficult. There is echogenic bile. The gallbladder wall is slightly thickened measuring 0.3 cm. There is no definite pericholecystic fluid. COMMON BILE DUCT: Normal in caliber measuring 0.5 cm in diameter. RIGHT KIDNEY: There is no hydronephrosis. There are no renal calculi or focal parenchymal lesions. The kidney measures 11.3 cm in maximum dimension. FREE FLUID: Difficult to assess due to body habitus and bowel gas. IMPRESSION: 1. The study demonstrates multiple echogenic gallbladder calculi. There is echogenic bile and the gallbladder wall is slightly thickened. 2. The common bile duct has normal caliber. DICTATED BY: NATALIYA GARRISON MD DATE/TIME DICTATED:09/07/162150 CONSTRUCTION PROJECT ASSISTANT:KATYA DATE/TIME TRANSCRIBED:09/07/162150 PATIENT: ILENE BRYANT PRESENT AGE: 71 PATIENT ACCOUNT NO: [id number] : 43 LOCATION: [facility] ORDERING PHYSICIAN: LAURO JOSHI DO SERVICE DATE: 09/07/16 EXAM TYPE: CAT - CT ABD & PELVIS W/O IV CONTRAS EXAMINATION: CT ABDOMEN AND PELVIS WITHOUT CONTRAST CLINICAL INFORMATION: 71-year-old male patient who has been vomiting for 24 hours. Abdominal pain. COMPARISON: None pertinent. TECHNIQUE: Multidetector volumetric imaging was performed from the superior aspect of the liver through the pubic symphysis. Sagittal and coronal reformatted images were obtained on the technologist's workstation. DLP: 683 mGy-cm FINDINGS: Precision [place] view: The bowel pattern is consistent with a so-called "colon cut off" sign seen in patients with acute pancreatitis. Please note that the study is compromised by the lack of IV contrast. LUNG BASES: The visualized lung bases are unremarkable. There is no pleural effusion. The patient has a small hiatal hernia. LIVER, GALLBLADDER, AND BILIARY TREE: The liver is normal in size, shape, and attenuation. No biliary ductal dilatation is present. A 1 cm hypodense nodule in Cou[place]ud segment 5 the liver cannot be characterized further. The gallbladder is unremarkable with no evidence of radiopaque gallstones, gallbladder wall thickening, or obvious pericholecystic inflammatory changes. PANCREAS: The pancreas is normal in size. However, there is an abnormal amount of peripancreatic effusion extending to the transverse mesocolon, the paraduodenal space as well as the anterior pararenal spaces of the retroperitoneum. Pancreatic fluid also extends towards the right inguinal canal. Small amounts of ascites are present in the peritoneal cavity. There is no pseudocyst formation. Enhancement characteristics of the pancreas would require IV contrast. SPLEEN: Unremarkable. ADRENAL GLANDS: Unremarkable. KIDNEYS AND URETERS: The kidneys are normal in size, shape, and attenuation. No hydronephrosis, hydroureter, or calculi seen. No perinephric stranding. BLADDER: Partially filled. GASTROINTESTINAL TRACT: Numerous diverticula arise from the sigmoid and descending colon. The colon cut off sign is caused by dissection of pancreatic enzymes to the level of the true splenic flexure. Series 2, image 45. The stomach, small bowel, and appendix are normal. ABDOMINAL WALL: A small fat-containing umbilical hernia is present. LYMPH NODES: No bulk adenopathy is seen. A small lymph node is adjacent to the true splenic flexure. Series 602, image 60. VASCULAR: Unremarkable. PELVIC VISCERA: Unremarkable. OSSEOUS STRUCTURES: There is nearly complete fusion of the vertebral bodies at L3-L4 due to disc disease. There is partial sacralization of L5. IMPRESSION: Acute pancreatitis with spread of pancreatic enzymes to multiple sites as described above. DICTATED BY: SAMIRA COLEMAN MD DATE/TIME DICTATED:09/07/162004 CONSTRUCTION PROJECT ASSISTANT:KATYA DATE/TIME TRANSCRIBED:09/07/162004 Assessment/Plan Assessment/Plan 71-year-old male admitted for pancreatitis , transaminitis and gallbladder calculi with gallbladder wall thickening. He has a normal caliber common bile duct on ultrasound. White count of 17,000 and a bili of 1.4. -Agree with concerns for acute cholangitis and would cover with antibiotics, currently on Unasyn. -Recommend MRCP tomorrow, GI consult in the morning for possible ERCP -Follow white count and LFTs -Patient may require a cholecystectomy in the near future, we'll discuss with Dr. Long. -Nothing by mouth for 09/08 Problem List: 1. Pancreatitis 2. Gall stones 3. Transaminitis 4. Abdominal pain Consult Acknowledgment - Thank you for your consult request. FIDEL LONG MD 09/08/16 1840: Assessment/Plan Consult Acknowledgment - Thank you for your consult request. Attending MD Review Statement Attending Statement Attending MD Statement: discuss w/resident/PA/WAREHOUSE HAND, reviewed images Attending Assessment/Plan: PATIENT WITH ACUTE PANCREATITIS, LIKLEY RELATED TO GALLSTONES. MRCP SHOWS NO COMMON DUCT STONES. RECOMMEND LAPAROSCOPIC CHOLECYSTECTOMY AFTER PANCREATITIS RESOLVED. POTENTIALLY TUESDAY.
--- NOTE | 2016-09-08 05:19 | Admission Certification ---
Admission Certification Certification Statement - As attending physician, I certify that at the time of - admission, based on clinical presentation, severity of - symptoms, need for further diagnostic testing and - therapeutic interventions, and risk of adverse outcomes - without in-hospital treatment, in my clinical assessment, - this patient requires an acute hospital stay for a minimum - of two nights or longer. I have also considered psychsocial - factors such as support system, advanced age, financial - issues, cognitive issues, and failed out-patient treatments, - past re-admission history, safety of patient, and lack of - compliance as applicable. Specific rationale supporting this admission is: Acute pancreatitis secondary to gallstone
--- NOTE | 2016-09-08 07:18 | PN- General Surgery ---
See Addendum Subjective Subjective: NAEO. Patient without new c/o. He states he does not have what he would call pain in his abdomen, more of a discomfort. He feels somewhat better than he did yesterday when he came in. Remains NPO without n/v. +flatus, no BM. Voiding spontaneously. OOB and ambulating. Denies CP/SOB. Objective Vital Signs and I&Os Vital Signs Date Time Temp Pulse Resp B/P Pulse O2 O2 Flow FiO2 Ox Delivery Rate 09/07 2351 98.3 67 20 150/64 92 Room Air 09/07 2256 99.1 75 18 144/68 09/07 2223 99.1 75 18 144/68 94 Room Air 09/07 203 99.5 72 18 148/71 93 Room Air 09/07 1820 98.7 101 18 126/76 99 Room Air Intake & Output 09/08 0800 09/08 0000 09/07 1600 09/07 0800 09/07 0000 09/06 1600 Intake Total 1000 Output Total Balance 1000 Intake, IV 1000 Patient 230 lb Weight Physical Exam: General: NAD, comfortable, A&Ox3 Chest: CTAB. RRR. Abdomen: soft, mildly distended. No focal tenderness, negative sutherland's sign. +Bowel sounds x4 quadrants. Ext: No calve swelling/TTP, neurovascularly intact bilateral lower extremities Current Medications: Current Medications Sig/Mariana Start time Last Medication Dose Route Stop Time Status Admin Ampicillin Sodium/ 3,000 MG Q6H 09/08 0100 AC 09/08 Sulbactam Sodium IV 0606 Sodium Chloride 100 ML Diphenhydramine HCl 25 MG Q6P PRN 09/07 2215 AC IV Enoxaparin Sodium 40 MG DAILY 09/08 1000 AC SC Folic Acid 1 MG DAILY 09/08 1000 AC PO Hydromorphone HCl 0.5 MG Q4P PRN 09/07 2215 AC IV Lactated Ringer's 1,000 ML Q5H 09/07 2330 AC 09/08 IV 09/08 1429 0540 Lactated Ringer's 1,000 ML .[id number] 09/07 2215 DC 09/07 IV 09/08 1134 2213 Lorazepam 0 Q1P PRN 09/07 2300 AC IV Morphine Sulfate 4 MG ONCE ONE 09/07 2100 DC 09/07 IV 03/28 2101 2101 Morphine Sulfate 0 .STK-MED ONE 09/07 2057 DC .ROUTE Ondansetron HCl 4 MG Q6P PRN 09/075 AC IV Sodium Chloride 1,000 ML BOLUS ONE 09/07 2029 DC 09/07 IV 09/07 Thiamine HCl 500 MG ONCE ONE 09/07 2330 DC 09/08 Sodium Chloride 250 ML IV 09/08 0029 0006 Thiamine HCl 500 MG ONCE ONE 09/07 2300 CAN IV 09/07 230 Results Last 48 Hours of Labs: Laboratory Tests 09/08 09/07 09/07 0644 2121 1837 Chemistry Sodium (137 - 145 mmol/L) Pending 140 Potassium (3.5 - 5.1 mmol/L) Pending 3.7 Chloride (98 - 107 mmol/L) Pending 104 Carbon Dioxide (22 - 30 mmol/L) Pending 24 Anion Gap (5 - 16) Pending 13 BUN (9 - 20 mg/dL) Pending 16 Creatinine (0.7 - 1.2 mg/dL) Pending 0.8 Estimated GFR (>60 ml/min) > 60 BUN/Creatinine Ratio (7 - 25 %) Pending 20.0 Glucose (65 - 99 mg/dL) 110 H Lactic Acid (0.7 - 2.1 mmol/L) Cancelled 1.4 Calcium (8.4 - 10.2 mg/dL) 9.0 Total Bilirubin (0.2 - 1.3 mg/dL) Pending 1.4 H Direct Bilirubin (< 0.4 mg/dL) Pending 0.4 AST (17 - 59 U/L) Pending 200 H ALT (21 - 72 U/L) Pending 364 H Alkaline Phosphatase (< 127 U/L) Pending 84 Lactate Dehydrogenase (313 - 618 U/L) 907 H Troponin I (<0.11 ng/ml) 0.02 C-React Prot High Sens Pending Total Protein (6.3 - 8.2 g/dL) Pending 7.0 Albumin (3.5 - 5.0 g/dL) Pending 4.0 Globulin (1.9 - 4.2 gm/dL) 3.0 Albumin/Globulin Ratio (1.1 - 2.2 %) 1.3 Amylase (30 - 110 U/L) 515 H Lipase (23 - 300 U/L) 7376 H Hematology CBC w Diff Pending NO MAN DIFF REQ WBC (4.8 - 10.8 /CUMM) Pending 17.7 H RBC (4.70 - 6.10 /CUMM) Pending 4.77 Hgb (14.0 - 18.0 G/DL) Pending 15.6 Hct (42 - 52 %) Pending 46.6 MCV (80.0 - 94.0 FL) Pending 97.6 H MCH (27.0 - 31.0 PG) Pending 32.7 H RDW (11.5 - 14.5 %) Pending 13.6 Plt Count (130 - 400 /CUMM) Pending 231 MPV (7.4 - 10.4 FL) Pending 8.9 Gran % (42.2 - 75.2 %) 90.2 H Lymphocytes % (20.5 - 51.1 %) 5.2 L Monocytes % (1.7 - 9.3 %) 4.6 Eosinophils % (0 - 5 %) 0 Basophils % (0.0 - 2.0 %) 0 L Absolute Granulocytes (1.4 - 6.5 /CUMM) 16.0 H Absolute Lymphocytes (1.2 - 3.4 /CUMM) 0.9 L Absolute Monocytes (0.10 - 0.60 /CUMM) 0.8 H Absolute Eosinophils (0.0 - 0.7 /CUMM) 0 Absolute Basophils (0.0 - 0.2 /CUMM) 0 PUBS MCHC (33.0 - 37.0 G/DL) Pending 33.5 Assessment/Plan Assessment/Plan 71yo M with acute pancreastitis, possibly acute gallstone pancreatitis. + elevated LFTs. AVSS, p[atient is stable at this time. - IV hydration - Pain control - NPO - f/u a.m. labs - f/u MRCP this morning - PRN zofran - continue IV abx - DVT PPx - would start PPI for GI PPx - CIWA protocol - laparoscopic cholecystectomy remains a possibility pending lab and imaging results - will d/w attending
[2016-09-08 07:35] VITALS: BP 138/70
--- NOTE | 2016-09-08 07:55 | RADIOLOGY REPORT ---
EXAMINATION: XR PORTABLE CHEST CLINICAL INFORMATION: Pancreatitis. COMPARISON: 01/02/2016 TECHNIQUE: Portable AP view of the chest was obtained. FINDINGS: The lungs are well expanded. There is no focal consolidation, edema, or effusion. No pneumothorax. The cardiomediastinal silhouette is within normal limits. No acute osseous abnormality. IMPRESSION: No acute pulmonary findings.
--- NOTE | 2016-09-08 08:11 | Cons- Gastroenterology ---
General Information and HPI Consulting Request Date of Consult: 09/08/16 Requested By: DG VELAZQUEZ MD Reason for Consult: I was notified half hour ago for a request for GI consultation to assess probable gallstone pancreatitis. Source of Information: patient, old records Exam Limitations: no limitations History of Present Illness: 71-year-old male, HTN (on Lotrel & Toprol, none of these new), DJD (on Diclofenac), non-diabetic, mild hypercholesterolomia (nl TG in past), history of GERD on Omeprazole 20 mg every other day x years, history of colon tubulovillous adenoma and tubular adenoma, without any family history of GI disease, GI malignancy, inherited liver disease or inherited pancreatitis, who was fine until 09/06/2016, when he was driving to the [place]. He had a bagel and cream cheese with a cup of coffee, followed shortly afterwards by epigastric/ periumbilical pain, localized nature, followed by multiple episodes (10) of nausea & vomiting, initially food content, then bilious, then dry heaves, without any hematemesis or melena. Please note, the patient is on baby aspirin daily, for colon polyp prophylaxis. The nausea and vomiting persisted throughout the day, and resolved. His epigastric/periumbilical symptoms persisted, prompting him to come to the [place] ER the next day, 09/07/2016, when he arrived at 6:08 PM. GI was not notified that evening. Initial vital signs BP 126/76, PT 101, T 98.7, R 18, O2 sat RA 99%. The patient was hemodynamically stable. He was never hypotensive. He denied any confusion, jaundice, dark urine, light stools, or pruritus. He denied any chest pain or shortness of breath, but did admit to some diaphoresis. His Tm was 99.5. He was empirically put on Unasyn. He was noted to the hospitalist service with a tentative diagnosis of gallstone pancreatitis (see labs & imaging studies) & was seen by surgery. The symptoms were somewhat positional in that he felt better when supine, but he did not necessarily feel better when leaning forward. He received IV saline and morphine in the ER. He did not require any narcotic analgesics overnight. Patient admits to 2 drinks of alcohol daily, but denies any excessive alcohol intake otherwise. He denies any history of DTs, seizures, or withdrawal. He claims he can go days at a time without alcohol, without incident. He does not smoke. He has no previous history of gallbladder disease , peptic ulcer disease, or pancreatitis. He denies any previous abnormal liver function tests or hepatitis. There was no abdominal trauma or preceding viral syndrome. He denied any rashes or acute arthralgias, aside from his DJD. The patient denied any lower GI symptoms, and specifically denied any diarrhea, constipation, obstipation, or rectal bleeding. He denied any preceding change in weight or preceding change in appetite. He had no symptoms of UTI or URI. He denied any subjective fevers or chills. *01/01/2016: Normal LFTs. 05/21/03: Last EGD- Mild distal GERD, without Luna's esophagus, hiatal hernia , Z-line at 35 cm, mild gastritis, HP- negative. The patient has had numerous colonoscopies with removal of benign TVA & TA. 11/30/2012: Colonoscopy to the cecum- excessive left-sided diverticula, mild internal hemorrhoids, 5 mm hyperplastic sigmoid polyp. (*By dates, the patient is due for f/u surveillance colonoscopy in 11/2017). 09/07/16: Admission labs- WBC 17.7 (90% gran/16 gran Ab), H/H 15.6/46.6, MCV 97.6, PLT 231, glucose 110, BUN/Cr 16/0.8, GFR > 60, normal electrolytes, including bicarbonate 24, AG 13, lactate 1.4, A/L 515/7376, Ca 9.0, albumin 4.0, globulin 3.0, TBil 1.4/DBil 0.4, alk phos 84, AST 200, ALT 364, LDH 907, troponin .02. *No coags were sent, nor any TG level. *No EKG on chart. *For some reason, CT obtained by the ER bwas without IV contrast, severely limiting sensitivity and specificity for pancreatitis. 09/07/16: XR PORTABLE CHEST- No acute pulmonary findings. 09/07/16: CT ABDOMEN AND PELVIS WITHOUT CONTRAST (per ER)- Acute pancreatitis with spread of pancreatic enzymes to multiple sites as described above. And the limits of a non-IV contrast study, normal gallbladder, no dilated ducts, peripancreatic effusion extending to the transverse mesocolon, the paraduodenal space as well as the anterior pararenal spaces of the retroperitoneum. Pancreatic fluid also extends towards the right inguinal canal. Small amounts of ascites are present in the peritoneal cavity. No pseudocyst. Small fat-containing umbilical hernia. Numerous left-sided diverticula, without diverticulitis. DJD, especially L3-L4. 09/07/16: US ABDOMEN (RUQ) LIMITED- 1. The study demonstrates multiple echogenic gallbladder calculi. There is echogenic bile and the gallbladder wall is slightly thickened 3 mm. 2. The common bile duct has normal caliber 5 mm. 3. No focal hepatic lesion. Allergies/Medications Allergies: Coded Allergies: No Known Allergies (09/07/16) Home Med List: Amlodipine Besylate/Benazepril (Amlodipine-Benazepril 5-40 MG) 5 MG-40 MG CAPSULE 1 CAP PO DAILY HTN (Reported) Aspirin (Aspirin*) 81 MG TAB.CHEW 1 TAB PO DAILY CARDIAC (Reported) Diclofenac Sodium 75 MG TABLET.DR 1 TAB PO BID PAIN (Reported) Fluoxetine HCl 20 MG CAPSULE 1 CAP PO DAILY MENTAL HEALTH (Reported) Metoprolol Tartrate 25 MG TABLET 1 TAB PO BID HTN (Reported) Past History Travel History Traveled to [place] past 21 day No Medical History Blood Transfusion Hx: No Neurological: NONE EENT: NONE Cardiovascular: hypertension, hyperlipidemia (cholesterol) Respiratory: NONE Gastrointestinal: ACID REFLUX, diverticulosis coli, colon TA/TVA Hepatic: NONE Renal: NONE Musculoskeletal: osteoarthritis Psychiatric: NONE Endocrine: NONE Blood Disorders: NONE Cancer(s): NONE 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 FATHER, , Age 94; Cause: Pneumonia. Psychosocial History Where Do You Live? Home Who Do You Live With? spouse Services at Home: None Primary Language: Jamaican Smoking Status: Never Smoked ETOH Use: occasional use, heavy use (2 drinks/day) Illicit Drug Use: denies illicit drug use Living Will? yes Power of Musical Instrument Mechanic/HCP? yes Name of POA/HCP: patient's , Ninfa Garrett Other Social History: . Lives with . has MS. Patient is her skid adzer. 2 drinks of alcohol daily. No cigarettes. No drugs. 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 One son and one daughter- both A&W. Functional Ability ADLs Independent: dressing, eating, toileting, bathing. Ambulation: independent IADLs Independent: shopping, housework, finances, food prep, telephone, transportation , medication admin. 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 Constitutional: Reports: diaphoresis Denies: see HPI, chills, fever, malaise, weakness. EENTM: Denies: no symptoms. Cardiovascular: Denies: chest pain, edema, palpitations, syncope. Respiratory: Denies: cough, hemoptysis, orthopnea, short of breath, sputum production, stridor, wheezing. GI: Reports: abdominal pain, bloating, distention, nausea, vomiting. Denies: constipation, diarrhea, melena, bloody stool. Genitourinary: Denies: no symptoms, discharge, frequency, hematuria. Musculoskeletal: Denies: back pain, joint pain. Skin: Denies: no symptoms. Neurological/Psychological: Denies: anxiety, depressed, dementia, emotional problems, headache, numbness, tingling, tremors. Exam & Diagnostic Data Vital Signs and I&O Vital Signs Date Time Temp Pulse Resp B/P Pulse O2 O2 Flow FiO2 Ox Delivery Rate 09/08 0735 98.6 64 18 138/70 92 Room Air 09/07 2351 98.3 67 20 150/64 92 Room Air 09/07 2256 99.1 75 18 144/68 09/07 2223 99.1 75 18 144/68 94 Room Air 09/07 2031 99.5 72 18 148/71 93 Room Air 09/07 1820 98.7 101 18 126/76 99 Room Air Intake & Output 09/08 1600 09/08 0400 09/07 1600 09/07 0400 09/06 1600 09/06 0400 Intake Total 1600 1000 Output Total Balance 1600 1000 Intake, IV 1600 1000 Patient 230 lb Weight Physical Exam: Well-developed, well-nourished male, slightly diaphoretic, in no apparent distress. Sclera anicteric. Conjunctiva pink. Oropharynx clear. No oral thrush. No aphthous ulcers. There is no adenopathy, thyromegaly, or JVD. No peripheral stigmata of inflammatory bowel disease or chronic liver disease on exam. No spiders on the anterior chest wall. No gynecomastia. No CVA tenderness. Lungs: clear to A&P. Heart exam: regular rate rhythm, S1 and S2, without any murmur. Abdominal exam: Slightly hypoactive bowel sounds, moderately distended belly, currently nontender, without guarding or rebound. Small reducible umbilical hernia, otherwise no mass. No organomegaly. No definite fluid shift. No pulsatile mass. No epigastric bruit. Digital rectal exam: currently deferred (API). Extremities: without C, C, or E. No palpable cords. DJD. No rash. No palmar erythema. No Dupuytren's contractures. Distal pulses 2+ bilaterally. DTRs 2+ bilaterally. Alert and oriented x 3. Nonfocal. No tremor. No asterixis. Results Pertinent Lab Results: Laboratory Tests 09/08 09/07 0644 2121 Chemistry Sodium (137 - 145 mmol/L) 139 Potassium (3.5 - 5.1 mmol/L) 3.7 Chloride (98 - 107 mmol/L) 109 H Carbon Dioxide (22 - 30 mmol/L) 24 Anion Gap (5 - 16) 6 BUN (9 - 20 mg/dL) 14 Creatinine (0.7 - 1.2 mg/dL) 0.8 Estimated GFR (>60 ml/min) > 60 BUN/Creatinine Ratio (7 - 25 %) 17.5 Lactic Acid Cancelled Total Bilirubin (0.2 - 1.3 mg/dL) 1.3 Direct Bilirubin (< 0.4 mg/dL) 0.4 AST (17 - 59 U/L) 107 H ALT (21 - 72 U/L) 225 H Alkaline Phosphatase (< 127 U/L) 66 C-Reactive Prot, Quant (<1.0 mg/dL) Pending C-React Prot High Sens (1.0 - 3.0 mg/L) > 15.0 H Total Protein (6.3 - 8.2 g/dL) 5.7 L Albumin (3.5 - 5.0 g/dL) 3.0 L Hematology CBC w Diff NO MAN DIFF REQ WBC (4.8 - 10.8 /CUMM) 16.4 H RBC (4.70 - 6.10 /CUMM) 4.01 L Hgb (14.0 - 18.0 G/DL) 13.4 L Hct (42 - 52 %) 39.5 L MCV (80.0 - 94.0 FL) 98.3 H MCH (27.0 - 31.0 PG) 33.3 H RDW (11.5 - 14.5 %) 13.6 Plt Count (130 - 400 /CUMM) 175 MPV (7.4 - 10.4 FL) 9.0 Gran % (42.2 - 75.2 %) 86.6 H Lymphocytes % (20.5 - 51.1 %) 7.1 L Monocytes % (1.7 - 9.3 %) 6.2 Eosinophils % (0 - 5 %) 0 Basophils % (0.0 - 2.0 %) 0.1 Absolute Granulocytes (1.4 - 6.5 /CUMM) 14.2 H Absolute Lymphocytes (1.2 - 3.4 /CUMM) 1.2 Absolute Monocytes (0.10 - 0.60 /CUMM) 1.0 H Absolute Eosinophils (0.0 - 0.7 /CUMM) 0 Absolute Basophils (0.0 - 0.2 /CUMM) 0 PUBS MCHC (33.0 - 37.0 G/DL) 33.9 09/07 1837 Chemistry Sodium (137 - 145 mmol/L) 140 Potassium (3.5 - 5.1 mmol/L) 3.7 Chloride (98 - 107 mmol/L) 104 Carbon Dioxide (22 - 30 mmol/L) 24 Anion Gap (5 - 16) 13 BUN (9 - 20 mg/dL) 16 Creatinine (0.7 - 1.2 mg/dL) 0.8 Estimated GFR (>60 ml/min) > 60 BUN/Creatinine Ratio (7 - 25 %) 20.0 Glucose (65 - 99 mg/dL) 110 H Lactic Acid (0.7 - 2.1 mmol/L) 1.4 Calcium (8.4 - 10.2 mg/dL) 9.0 Total Bilirubin (0.2 - 1.3 mg/dL) 1.4 H Direct Bilirubin (< 0.4 mg/dL) 0.4 AST (17 - 59 U/L) 200 H ALT (21 - 72 U/L) 364 H Alkaline Phosphatase (< 127 U/L) 84 Lactate Dehydrogenase (313 - 618 U/L) 907 H Troponin I (<0.11 ng/ml) 0.02 Total Protein (6.3 - 8.2 g/dL) 7.0 Albumin (3.5 - 5.0 g/dL) 4.0 Globulin (1.9 - 4.2 gm/dL) 3.0 Albumin/Globulin Ratio (1.1 - 2.2 %) 1.3 Amylase (30 - 110 U/L) 515 H Lipase (23 - 300 U/L) 7376 H Hematology CBC w Diff NO MAN DIFF REQ WBC (4.8 - 10.8 /CUMM) 17.7 H RBC (4.70 - 6.10 /CUMM) 4.77 Hgb (14.0 - 18.0 G/DL) 15.6 Hct (42 - 52 %) 46.6 MCV (80.0 - 94.0 FL) 97.6 H MCH (27.0 - 31.0 PG) 32.7 H RDW (11.5 - 14.5 %) 13.6 Plt Count (130 - 400 /CUMM) 231 MPV (7.4 - 10.4 FL) 8.9 Gran % (42.2 - 75.2 %) 90.2 H Lymphocytes % (20.5 - 51.1 %) 5.2 L Monocytes % (1.7 - 9.3 %) 4.6 Eosinophils % (0 - 5 %) 0 Basophils % (0.0 - 2.0 %) 0 L Absolute Granulocytes (1.4 - 6.5 /CUMM) 16.0 H Absolute Lymphocytes (1.2 - 3.4 /CUMM) 0.9 L Absolute Monocytes (0.10 - 0.60 /CUMM) 0.8 H Absolute Eosinophils (0.0 - 0.7 /CUMM) 0 Absolute Basophils (0.0 - 0.2 /CUMM) 0 PUBS MCHC (33.0 - 37.0 G/DL) 33.5 Imaging/Other Studies: 09/07/16: XR PORTABLE CHEST- No acute pulmonary findings. 09/07/16: CT ABDOMEN AND PELVIS WITHOUT CONTRAST (per ER)- Acute pancreatitis with spread of pancreatic enzymes to multiple sites as described above. And the limits of a non-IV contrast study, normal gallbladder, no dilated ducts, peripancreatic effusion extending to the transverse mesocolon, the paraduodenal space as well as the anterior pararenal spaces of the retroperitoneum. Pancreatic fluid also extends towards the right inguinal canal. Small amounts of ascites are present in the peritoneal cavity. No pseudocyst. Small fat-containing umbilical hernia. Numerous left-sided diverticula, without diverticulitis. DJD, especially L3-L4. 09/07/16: US ABDOMEN (RUQ) LIMITED- 1. The study demonstrates multiple echogenic gallbladder calculi. There is echogenic bile and the gallbladder wall is slightly thickened 3 mm. 2. The common bile duct has normal caliber 5 mm. 3. No focal hepatic lesion. Assessment/Plan Assessment/Recommendations: 71-year-old male, HTN (on Lotrel & Toprol, none of these new), DJD (on Diclofenac), non-diabetic, mild hypercholesterolomia (nl TG in past), history of GERD on Omeprazole 20 mg every other day x years, history of colon tubulovillous adenoma and tubular adenoma, without any family history of GI disease, GI malignancy, inherited liver disease or inherited pancreatitis, who was fine until 09/06/2016, when he was driving to the [place]. He had a bagel and cream cheese with a cup of coffee, followed shortly afterwards by epigastric/ periumbilical pain, localized nature, followed by multiple episodes (10) of nausea & vomiting, initially food content, then bilious, then dry heaves, without any hematemesis or melena. Please note, the patient is on baby aspirin daily, for colon polyp prophylaxis. The nausea and vomiting persisted throughout the day, and resolved. His epigastric/periumbilical symptoms persisted, prompting him to come to the [place] ER the next day, 09/07/2016, when he arrived at 6:08 PM. GI was not notified that evening. Initial vital signs BP 126/76, PT 101, T 98.7, R 18, O2 sat RA 99%. The patient was hemodynamically stable. He was never hypotensive. He denied any confusion, jaundice, dark urine, light stools, or pruritus. He denied any chest pain or shortness of breath, but did admit to some diaphoresis. His Tm was 99.5. He was empirically put on Unasyn. He was noted to the hospitalist service with a tentative diagnosis of gallstone pancreatitis (see labs & imaging studies) & was seen by surgery. The symptoms were somewhat positional in that he felt better when supine, but he did not necessarily feel better when leaning forward. He received IV saline and morphine in the ER. He did not require any narcotic analgesics overnight. Patient admits to 2 drinks of alcohol daily, but denies any excessive alcohol intake otherwise. He denies any history of DTs, seizures, or withdrawal. He claims he can go days at a time without alcohol, without incident. He does not smoke. He has no previous history of gallbladder disease , peptic ulcer disease, or pancreatitis. He denies any previous abnormal liver function tests or hepatitis. There was no abdominal trauma or preceding viral syndrome. He denied any rashes or acute arthralgias, aside from his DJD. The patient denied any lower GI symptoms, and specifically denied any diarrhea, constipation, obstipation, or rectal bleeding. He denied any preceding change in weight or preceding change in appetite. He had no symptoms of UTI or URI. He denied any subjective fevers or chills. *01/01/2016: Normal LFTs. 05/21/03: Last EGD- Mild distal GERD, without Luna's esophagus, hiatal hernia , Z-line at 35 cm, mild gastritis, HP- negative. The patient has had numerous colonoscopies with removal of benign TVA & TA. 11/30/2012: Colonoscopy to the cecum- excessive left-sided diverticula, mild internal hemorrhoids, 5 mm hyperplastic sigmoid polyp. (*By dates, the patient is due for f/u surveillance colonoscopy in 11/2017). 09/07/16: Admission labs- WBC 17.7 (90% gran/16 gran Ab), H/H 15.6/46.6, MCV 97.6, PLT 231, glucose 110, BUN/Cr 16/0.8, GFR > 60, normal electrolytes, including bicarbonate 24, AG 13, lactate 1.4, A/L 515/7376, Ca 9.0, albumin 4.0, globulin 3.0, TBil 1.4/DBil 0.4, alk phos 84, AST 200, ALT 364, LDH 907, troponin .02. *No coags were sent, nor any TG level. *No EKG on chart. *For some reason, CT obtained by the ER bwas without IV contrast, severely limiting sensitivity and specificity for pancreatitis. 09/07/16: XR PORTABLE CHEST- No acute pulmonary findings. 09/07/16: CT ABDOMEN AND PELVIS WITHOUT CONTRAST (per ER)- Acute pancreatitis with spread of pancreatic enzymes to multiple sites as described above. And the limits of a non-IV contrast study, normal gallbladder, no dilated ducts, peripancreatic effusion extending to the transverse mesocolon, the paraduodenal space as well as the anterior pararenal spaces of the retroperitoneum. Pancreatic fluid also extends towards the right inguinal canal. Small amounts of ascites are present in the peritoneal cavity. No pseudocyst. Small fat-containing umbilical hernia. Numerous left-sided diverticula, without diverticulitis. DJD, especially L3-L4. 09/07/16: US ABDOMEN (RUQ) LIMITED- 1. The study demonstrates multiple echogenic gallbladder calculi. There is echogenic bile and the gallbladder wall is slightly thickened 3 mm. 2. The common bile duct has normal caliber 5 mm. 3. No focal hepatic lesion. 09/08/16: LFTs slowly improving. *Most likely, gallstone pancreatitis, by labs and imaging studies. On admission, 09/07/16: 3 grave signs by Flora criteria (elevated age, LDH, WBC), with only 1 grave sign by BiSAP criteria (elevated age). There were no pleural effusions on chest x-ray. Unfortunately, the admission CT was significantly limited with the lack of IV contrast. PT/INR & triglyceride have not been checked. Alcohol intake is moderate, but probably not contributory. He is a nonsmoker. Of note, the patient is on Diclofenac. He is also on Lotrel, which contains an KARINA inhibitor, but this is probably not causative. He was not hypotensive. There was no change in mental status. Clinically, I do not think the patient has cholangitis. It is possible the patient could have some mild cholecystitis. SUGGEST: NPO. IV Lactated Ringer's @ 200cc/hr for now. Strict I's and O's. Supplemental O2 as needed. Analgesics. Zofran as needed. Consider holding Lotrel. *No NSAIDs. Continue PPI for GERD. Agree with empiric Unasyn 3 g IV Q6h for now, in view of leukocytosis, cholelithiasis and questionable thickened gallbladder wall. *Check TG. *Check PT with INR. *Check CRP for prognostic purposes. Thiamine, folate, multivitamin. Ativan as needed. Serial CIWA. DVT prophylaxis. *EKG on chart. *MRCP later today to clear CBD. Assuming the CBD is clear, will forego ERCP, but this can be reconsidered after reviewing MRCP. Most likely, the patient will need cholecystectomy, timing to be determined by surgery. Recent studies have shown similar outcomes if cholecystectomy is done during the acute admission vs. within 1 month of admission for gallstone pancreatitis. As an aside, by dates, the patient is due for follow-up surveillance colonoscopy for polyp surveillance in 11/2017. Further recommendations to follow, depending on clinical course. The above was discussed with the hospitalist service. Problem List: 1. Pancreatitis 2. Gall stones 3. Abnormal LFTs 4. Abdominal pain 5. Umbilical hernia 6. Diverticula of colon 7. GERD (gastroesophageal reflux disease) 8. History of adenomatous polyp of colon Copies To: CAROLINE LOVETT,JESSICA FRENCH MD,ERIK JONAS MD,FIDEL Mitchell; SALOMÓN LOVETT,JACKY Andrade. Consult Acknowledgment - Thank you for your consult request.
[2016-09-08 08:13] LABS: ABSOLUTE BASOPHIL COUNT 0 /CUMM (0.0-0.2); ABSOLUTE EOSINOPHIL COUNT 0 /CUMM (0.0-0.7); ABSOLUTE GRANULOCYTE CT 14.2 /CUMM (1.4-6.5); ABSOLUTE LYMPH COUNT 1.2 /CUMM (1.2-3.4); BASOPHIL % 0.1 % (0.0-2.0); EOSINOPHIL % 0 % (0-5); MEAN CORPUSCULAR HGB 33.3 PG (27.0-31.0); MEAN CORPUSCULAR HGB CONC 33.9 G/DL (33.0-37.0); MEAN CORPUSCULAR VOLUME 98.3 FL (80.0-94.0); RBC DISTRIBUTION WIDTH 13.6 % (11.5-14.5); RED BLOOD CELL CT 4.01 /CUMM (4.70-6.10); WHITE BLOOD CELL COUNT 16.4 /CUMM (4.8-10.8)
[2016-09-08 08:57] LABS: HEMATOCRIT 39.5 % (42-52)
[2016-09-08 08:58] LABS: GRANULOCYTE % 86.6 % (42.2-75.2); PLATELET COUNT 175 /CUMM (130-400)
--- NOTE | 2016-09-08 09:03 | PN- Housestaff ---
MANOLO LOVETT,SIVAN 09/08/16 0903: Subjective Follow-up For: Abdominal pain, nausea, vomiting Pancreatitis Subjective: Patient feels comfortable this morning. Currently nothing by mouth on IV fluids. Denies nausea, abdominal pain, vomiting. Review of Systems Constitutional: Reports: see HPI. Objective Last 24 Hrs of Vital Signs/I&O Vital Signs Date Time Temp Pulse Resp B/P Pulse O2 O2 Flow FiO2 Ox Delivery Rate 09/08 0735 98.6 64 18 138/70 92 Room Air 09/07 2351 98.3 67 20 150/64 92 Room Air 09/07 2256 99.1 75 18 144/68 09/07 2223 99.1 75 18 144/68 94 Room Air 09/07 2031 99.5 72 18 148/71 93 Room Air 09/07 1820 98.7 101 18 126/76 99 Room Air Intake & Output 09/08 1600 09/08 0800 09/08 0000 Intake Total 1600 1000 Output Total Balance 1600 1000 Intake, IV 1600 1000 Patient 230 lb Weight Physical Exam General Appearance: Alert, Oriented X3, Cooperative, No Acute Distress Skin: No Rashes HEENT: Atraumatic, PERRLA, EOMI Cardiovascular: Regular Rate, Normal S1, Normal S2, No Murmurs Lungs: Clear to Auscultation Current Medications: Current Medications Sig/Mariana Start time Last Medication Dose Route Stop Time Status Admin Ampicillin Sodium/ 3,000 MG Q6H 09/08 0100 AC 09/08 Sulbactam Sodium IV 1232 Sodium Chloride 100 ML Diphenhydramine HCl 25 MG Q6P PRN 09/07 2214 AC IV Enoxaparin Sodium 40 MG DAILY 09/08 1000 CAN SC Folic Acid 1 MG DAILY 09/08 1000 AC PO Hydromorphone HCl 0.5 MG Q4P PRN 09/07 221 AC IV Lactated Ringer's 1,000 ML Q5H 09/07 2330 AC 09/08 IV 09/09 0428 1232 Lactated Ringer's 1,000 ML .Q6H40M 09/07 221 DC 09/07 IV 09/08 1134 2213 Lorazepam 0 Q1P PRN 09/07 2300 AC IV Morphine Sulfate 4 MG ONCE ONE 09/07 2099 DC 09/07 IV 09/07 Morphine Sulfate 0 .STK-MED ONE 09/07 2057 DC .ROUTE Ondansetron HCl 4 MG Q6P PRN 09/07 2215 AC IV Patient Medication 1 ED .STK-MED ONE 09/08 1356 DC Teaching ED 09/08 1357 Sodium Chloride 1,000 ML BOLUS ONE 09/07 2029 DC 09/07 IV 09/07 Thiamine HCl 500 MG ONCE ONE 09/07 2330 DC 09/08 Sodium Chloride 250 ML IV 09/08 0029 0006 Thiamine HCl 500 MG ONCE ONE 09/07 2300 CAN IV 09/07 2301 Last 24 Hrs of Lab/Elder Results Last 24 Hrs of Labs/Mics: Laboratory Tests 09/08/16 0644: Anion Gap 6, Estimated GFR > 60, BUN/Creatinine Ratio 17.5, Total Bilirubin 1.3, Direct Bilirubin 0.4, AST 107 H, ALT 225 H, Alkaline Phosphatase 66, C- Reactive Prot, Quant > 9.0 H, C-React Prot High Sens > 15.0 H, Total Protein 5.7 L, Albumin 3.0 L, Triglycerides 45, CBC w Diff NO MAN DIFF REQ, RBC 4.01 L, MCV 98.3 H, MCH 33.3 H, RDW 13.6, MPV 9.0, Gran % 86.6 H, Lymphocytes % 7.1 L, Monocytes % 6.2, Eosinophils % 0, Basophils % 0.1, Absolute Granulocytes 14.2 H, Absolute Lymphocytes 1.2, Absolute Monocytes 1.0 H, Absolute Eosinophils 0, Absolute Basophils 0, PUBS MCHC 33.9 09/07/162120: Lactic Acid Cancelled 09/07/16 1837: Anion Gap 13, Estimated GFR > 60, BUN/Creatinine Ratio 20.0, Glucose 110 H, Lactic Acid 1.4, Calcium 9.0, Total Bilirubin 1.4 H, Direct Bilirubin 0.4, AST 200 H, ALT 364 H, Alkaline Phosphatase 84, Lactate Dehydrogenase 907 H, Troponin I 0.02, Total Protein 7.0, Albumin 4.0, Globulin 3.0, Albumin/Globulin Ratio 1.3, Amylase 515 H, Lipase 7376 H, CBC w Diff NO MAN DIFF REQ, RBC 4.77, MCV 97.6 H, MCH 32.7 H, RDW 13.6, MPV 8.9, Gran % 90.2 H, Lymphocytes % 5.2 L, Monocytes % 4.6, Eosinophils % 0, Basophils % 0 L, Absolute Granulocytes 16.0 H, Absolute Lymphocytes 0.9 L, Absolute Monocytes 0.8 H, Absolute Eosinophils 0, Absolute Basophils 0, PUBS MCHC 33.5 Assessment/Plan Assessment: Male presented with complaints of nausea, vomiting, abdominal pain with CAT scan and lab showing evidence of acute pancreatitis. His BISAP score on admission was 1. 1. Acute pancreatitis due to gallstone versus alcohol use: - Keep patient nothing by mouth. - Will continue lactated Ringer at 1 50 mL an hour while monitoring ins and outs and oxygen saturation - Continue Unasyn given leukocytosis and cholelithiasis - LAD on triglycerides level as per GI recommendation. - CRP was check on admission which was elevated -Patient awaiting MRCP. Plan for ERCP based on the results. - Surgery following for possible cholecystectomy - Liver functions trending down. We'll continue to follow-up - Continue with IV Dilaudid when necessary for pain 2. Chronic EtOH use: - CIWA score has been 0 - He is on Ativan IV when necessary which has not received any since admission 3. Hypertension: - Patient's blood pressure medications was on hold since admission - restart beta blockers/amlodipione today. A pressure remains within acceptable range. - Would restart Benzapril a.m. DVT prophylaxis withALPS FULL CODE STATUS Problem List: 1. Transaminitis 2. Pancreatitis 3. Gall stones 4. Abnormal LFTs Pain Ratin Pain Location: abdomen Pain Goal: Remain pain free Pain Plan: IV dilaudid Tomorrow's Labs & Rationales: will need AM labs RYLEE MARLOW MD 09/08/16 1055: Attending MD Review Statement Attending Statement Attending MD Statement: examined this patient, discuss w/resident/PA/HYDROGRAPHIC ENGINEER, agreed w/resident/PA/HYDROGRAPHIC ENGINEER, reviewed EMR data (avail), discussed with nursing, discussed with case mgmt, reviewed images Attending Assessment/Plan: Patient feels okay. He feels that whatever we are giving him for the pain is helping. This is a 71-year-old male with a past medical history of hypertension , alcohol use who is here with an acute gallstone pancreatitis. Came in with a lipase of 7000, elevated transaminases and mildly elevated bili. He is nothing by mouth on lactated Ringer's and on IV Unasyn and is scheduled for an MRCP later today. If the MRCP doesn't show a dilated CBD with a blocking stone then the plan will be to treat him for a pancreatitis with likely cholecystectomy, timing to be decided. Will watch him closely in terms of his fluids and his pain. We'll check coags, triglycerides and follow LFTs closely.
--- NOTE | 2016-09-08 09:10 | RADIOLOGY REPORT ---
EXAMINATION: XR PORTABLE CHEST CLINICAL INFORMATION: Pancreatitis. Question cholangitis. Pleural effusion follow-up. COMPARISON: 09/07/2016 TECHNIQUE: Portable AP view of the chest was obtained. FINDINGS: The lungs are well expanded. There is no focal consolidation, edema, or effusion. No pneumothorax. The cardiomediastinal silhouette is within normal limits. No acute osseous abnormality. IMPRESSION: No acute pulmonary findings.
--- NOTE | 2016-09-08 10:50 | NUR ---
NURSING NOTE: PT OFF FLOOR TO MRI
--- NOTE | 2016-09-08 12:29 | MRI REPORT ---
EXAMINATION: MR ABDOMEN WITHOUT CONTRAST; MR CHOLANGIOPANCREATOGRAPHY CLINICAL INFORMATION: Gallstone pancreatitis. Question cholangitis. Acute pancreatitis with transaminitis. COMPARISON: CT and ultrasound from 09/07/2016. TECHNIQUE: Multiple routine MRI sequences through the abdomen were obtained. Heavily T2 weighted images were performed utilizing a dedicated MRCP technique. Contrast was not utilized for the study. FINDINGS: Biliary system: The common bile duct is normal in course and caliber with no evidence for intra-or extrahepatic biliary ductal dilatation. The common bile duct measures 0.5 cm. No intraluminal filling defects are appreciated. Gallbladder: The gallbladder is stone filled. No pericholecystic fluid. Wall thickening is better appreciated on the prior ultrasound. Pancreatic duct: The pancreatic duct is normal in course and caliber with no evidence for pancreatic ductal obstruction. Liver parenchyma is homogeneous in signal with no solid hepatic lesion appreciated. There is a T2 bright 1 cm lesion in segment 5 of the liver which likely represents a cyst. There is edema within the peripancreatic fat, consistent with known pancreatitis. The pancreatic parenchyma appears homogenous on this noncontrast study. No peripancreatic fluid collections. Small amount of fluid extends along the right paracolic gutter. The spleen, adrenal glands, and kidneys are unremarkable. No gross bowel abnormality. IMPRESSION: No pancreatic or biliary ductal abnormality seen. No evidence for obstruction or intraluminal filling defects. Cholelithiasis. Peripancreatic edema consistent with known pancreatitis. Small amount of fluid extends into the right pericolic gutter. No fluid collection. No gross pancreatic parenchymal abnormality.
[2016-09-08 14:13] VITALS: BP 153/65
[2016-09-08 16:00] VITALS: BP 153/65
--- NOTE | 2016-09-08 22:06 | NUR ---
PATIENT STATED THAT DR JONAS SAID HE COULD HAVE WATER TO DRINK (CURRENTLY NPO) NO ORDER PLACED OR DR NOTE. PT DID HAVE PITCHER OF WATER AT BEDSIDE. SPOKE WITH SWayne DELGADO, OK TO HAVE FOR TONIGHT, BACK TO NPO AT MIDNIGHT.
[2016-09-08 22:33] VITALS: BP 134/72
[2016-09-09 07:13] VITALS: BP 130/70
--- NOTE | 2016-09-09 07:28 | PN- General Surgery ---
Surgical Brief Attending Note Brief Attending Note: Patient is improved. His pancreatitis is resolving. He can be started on a liquid diet today. Plan for laparoscopic cholecystectomy tomorrow (Tuesday), pending his final decision.
--- NOTE | 2016-09-09 07:54 | PN- Housestaff ---
MANOLO LOVTET,SIVAN 09/09/16 0754: Subjective Follow-up For: Acute pancreatitis Subjective: Patient appears comfortable this morning. Not in acute distress. Denies any abdominal pain this morning. Had one episode of abdominal pain which responded well to pain medications. Currently on IV fluids. Review of Systems Constitutional: Reports: see HPI. Objective Last 24 Hrs of Vital Signs/I&O Vital Signs Date Time Temp Pulse Resp B/P Pulse O2 O2 Flow FiO2 Ox Delivery Rate 09/09 1423 98.3 74 20 132/86 94 Room Air 09/09 0942 77 130/70 09/09 0942 77 130/70 09/09 0713 98.7 77 20 130/70 94 Room Air 09/08 2233 98.5 73 20 134/72 93 Room Air 09/08 2136 73 134/72 09/08 2136 73 134/72 09/08 1721 67 153/65 09/08 1600 98.9 67 20 153/65 Intake & Output 09/09 1600 09/09 0800 09/09 0000 Intake Total 800 1600 1150 Output Total Balance 800 1600 1150 Intake, IV 1600 1150 Intake, Oral 800 0 Physical Exam General Appearance: Alert, Oriented X3, Cooperative, No Acute Distress Skin: No Rashes Cardiovascular: Regular Rate, Normal S1, Normal S2, No Murmurs Lungs: Clear to Auscultation Abdomen: Normal Bowel Sounds, Soft, mild tenderness present on the right upper quadrant Extremities: No Clubbing, No Cyanosis, No Edema Current Medications: Current Medications Sig/Mariana Start time Last Medication Dose Route Stop Time Status Admin Amlodipine Besylate 5 MG DAILY 09/08 1615 AC 09/09 PO 0942 Ampicillin Sodium/ 3,000 MG Q6H 09/08 0100 AC 09/09 Sulbactam Sodium IV 1300 Sodium Chloride 100 ML Diphenhydramine HCl 25 MG Q6P PRN 09/07 2215 AC IV Fluoxetine HCl 20 MG DAILY 09/09 1000 AC 09/09 PO 0942 Folic Acid 1 MG DAILY 09/08 1000 AC 09/09 PO 0942 Hydromorphone HCl 0.5 MG Q4P PRN 09/07 2215 AC 09/08 IV 2136 Lactated Ringer's 1,000 ML Q10H 09/09 1445 UNVr IV Lactated Ringer's 1,000 ML Q5H 09/07 2330 DC 09/09 IV 09/09 0528 0019 Lorazepam 0 Q1P PRN 09/07 2300 AC IV Metoprolol Tartrate 25 MG BID 09/08 1451 AC 09/09 PO 0942 Ondansetron HCl 4 MG Q6P PRN 09/07 2215 AC IV Last 24 Hrs of Lab/Elder Results Last 24 Hrs of Labs/Mics: Laboratory Tests 09/09/16 0640: Anion Gap 7, Estimated GFR > 60, BUN/Creatinine Ratio 17.5, Total Bilirubin 1.3, Direct Bilirubin 0.5 H, AST 62 H, ALT 147 H, Alkaline Phosphatase 65, Total Protein 5.4 L, Albumin 2.8 L, PT 13.9 H, INR 1.33 H, CBC w Diff MAN DIFF ORDERED, RBC 3.83 L, MCV 97.9 H, MCH 33.0 H, RDW 13.4, MPV 9.2, Gran % 87.5 H, Lymphocytes % 6.5 L, Monocytes % 5.8, Eosinophils % 0.1, Basophils % 0.1, Absolute Granulocytes 12.1 H, Segmented Neutrophils 84 H, Band Neutrophils 6 H, Absolute Lymphocytes 0.9 L, Lymphocytes 5 L, Monocytes 5, Absolute Monocytes 0.8 H, Absolute Eosinophils 0, Absolute Basophils 0, Platelet Estimate VERIFIED BY SMEAR, Normocytic RBCs VERIFIED, Normochromic RBCs VERIFIED , PUBS MCHC 33.7 Assessment/Plan Assessment: Male presented with complaints of nausea, vomiting, abdominal pain with CAT scan and lab showing evidence of acute pancreatitis. His BISAP score on admission was 1. 1. Acute pancreatitis due to gallstone versus alcohol use: - Start him on a clear liquid diet today and advance to full liquid if patient tolerates it - Plan for laparoscopic cholecystectomy in a.m. - Keep him nothing by mouth at midnight - Continue Unasyn given leukocytosis and cholelithiasis - Will continue to monitor labs 2. Chronic EtOH use: - CIWA score has been 0 - He is on Ativan IV when necessary which has not received any since admission 3. Hypertension: - Restarted blood pressure medication including amlodipine and metoprolol XL-we' ll restart Benzapril after surgery. DVT prophylaxis withALPS as there is plan for procedure in AM FULL CODE STATUS Problem List: 1. Pancreatitis 2. Gall stones Pain Ratin Pain Location: Abdomen Pain Goal: Remain pain free Pain Plan: On dilaudid Tomorrow's Labs & Rationales: Will need RYLEE MARLOW MD 09/09/16 0950: Attending MD Review Statement Attending Statement Attending MD Statement: examined this patient, discuss w/resident/PA/INVESTMENT SALES ASSISTANT, agreed w/resident/PA/INVESTMENT SALES ASSISTANT, reviewed EMR data (avail), discussed with nursing, discussed with case mgmt, reviewed images Attending Assessment/Plan: Overall patient is feeling better. He is agreeable to the cholecystectomy for the morning. Is a 71-year-old with alcohol history who is here with a gallstone pancreatitis. His numbers are slowly getting better in terms of his white count and his LFTs. He is on clear liquids, on IV Unasyn with the plan for laparoscopic cholecystectomy in a.m.
[2016-09-09 08:07] LABS: ABSOLUTE BASOPHIL COUNT 0 /CUMM (0.0-0.2); ABSOLUTE EOSINOPHIL COUNT 0 /CUMM (0.0-0.7); ABSOLUTE GRANULOCYTE CT 12.1 /CUMM (1.4-6.5); ABSOLUTE LYMPH COUNT 0.9 /CUMM (1.2-3.4); ABSOLUTE MONOCYTE COUNT 0.8 /CUMM (0.10-0.60); BASOPHIL % 0.1 % (0.0-2.0); EOSINOPHIL % 0.1 % (0-5); GRANULOCYTE % 87.5 % (42.2-75.2); HEMATOCRIT 37.5 % (42-52); MEAN CORPUSCULAR HGB CONC 33.7 G/DL (33.0-37.0); MEAN CORPUSCULAR VOLUME 97.9 FL (80.0-94.0); MEAN PLATELET VOLUME 9.2 FL (7.4-10.4); PLATELET COUNT 161 /CUMM (130-400); RBC DISTRIBUTION WIDTH 13.4 % (11.5-14.5); RED BLOOD CELL CT 3.83 /CUMM (4.70-6.10); WHITE BLOOD CELL COUNT 13.8 /CUMM (4.8-10.8)
[2016-09-09 08:26] LABS: PT 13.9 SEC (9.4-12.5)
[2016-09-09 14:23] VITALS: BP 132/86
--- NOTE | 2016-09-09 14:56 | Discharge Summary ---
Visit Information Visit Dates Admission Date: 09/07/16 Discharge Date: 09/12/16 Hospital Course Course Attending Physician: RYLEE MARLOW MD Primary Care Physician: JACKY LORENZANA MD Hospital Course: 71-year-old man presents to the ED with 71-year-old man with past medical history of hypertension, acid reflux, Chronic alcohol use presents to the ED with chief complaints of abdominal pain, bloating, nausea. Vitals and admission: Blood pressure 126/76, respirations 18, pulse rate 101, temperature 98.7, oxygen saturation 99% on room air. Labs and admission: WBC 17.7, hemoglobin 15.6, hematocrit 46.6, platelets 231, sodium 140, potassium 3.7, chloride 104, bicarbonate 24, BUN 6, creatinine 0.8, lactate dehydrogenase 907, troponins 0.02, total bilirubin 1.4, lipase 7376. CT ABDOMEN AND PELVIS WITHOUT CONTRAST: Acute pancreatitis Hospital course 1. Acute pancreatitis due to gallstones:He was admitted to general medical floor, kept nothing by mouth started on lactated Ringer's. His BISAP score on admission was 1. He was also started on pain medications with good relief. GI was consulted who recommended MRCP. MRCP done did not show evidence of obstruction or intraluminal filling defect. Once his symptoms improved he started on a liquid diet which patient tolerated well. Patient underwent laproscope cholecystectomy. 2. Acute cholecystitis: He was started on Unasyn and continued for a total of 3 days. Patient underwent laparoscopic cholecystectomy on 09/10/2016 Unasyn was discontinued after his Colecystectomy. aspirin was resumed after discussing with surgeon. 3. New onset atrial fibrillation: Patient's hospital course was complicated by new onset atrial fibrillation which he developed during intraoperative course. He was transferred to telemetry. His rate remained under control. Cardiology was consulted. Initially there was no plan for anticoagulation given his recent surgery. He was later started on Eliquis 5 twice a day as per recommendation by cardiology. He will need stress test and echocardiogram which he will follow up with Dr. Argueta as outpatient. 4. Chronic EtOH use: Patient was placed on a CIWA score which remained 0 and he did not require any Ativan. His hospital course was uneventful without any withdrawals. 5. Hypertension: His blood pressure medications were initially held and later restarted at his home dose. Full CODE STATUS Allergies: Coded Allergies: No Known Allergies (09/07/16) Significant Procedures: Laparoscopic cholecystectomy Pertinent Lab Results: Laboratory Tests 09/12 09/11 0700 0635 Chemistry Sodium (137 - 145 mmol/L) 138 139 Potassium (3.5 - 5.1 mmol/L) 3.4 L 3.4 L Chloride (98 - 107 mmol/L) 106 105 Carbon Dioxide (22 - 30 mmol/L) 27 26 Anion Gap (5 - 16) 6 8 BUN (9 - 20 mg/dL) 13 9 Creatinine (0.7 - 1.2 mg/dL) 0.7 0.7 Estimated GFR (>60 ml/min) > 60 > 60 BUN/Creatinine Ratio (7 - 25 %) 18.6 12.9 Hematology CBC w Diff NO MAN DIFF REQ MAN DIFF ORDERED WBC (4.8 - 10.8 /CUMM) 16.6 H 18.7 H RBC (4.70 - 6.10 /CUMM) 3.70 L 3.98 L Hgb (14.0 - 18.0 G/DL) 12.3 L 13.1 L Hct (42 - 52 %) 36.4 L 39.4 L MCV (80.0 - 94.0 FL) 98.3 H 99.0 H MCH (27.0 - 31.0 PG) 33.1 H 33.0 H RDW (11.5 - 14.5 %) 13.0 13.3 Plt Count (130 - 400 /CUMM) 256 256 MPV (7.4 - 10.4 FL) 9.0 9.4 Gran % (42.2 - 75.2 %) 84.9 H 86.4 H Lymphocytes % (20.5 - 51.1 %) 6.6 L 6.0 L Monocytes % (1.7 - 9.3 %) 7.4 7.0 Eosinophils % (0 - 5 %) 1.0 0.5 Basophils % (0.0 - 2.0 %) 0.1 0.1 Absolute Granulocytes (1.4 - 6.5 /CUMM) 14.1 H 16.2 H Segmented Neutrophils (42.2 - 75.2 %) 78 H Band Neutrophils (0.0 - 5.0 %) 7 H Absolute Lymphocytes (1.2 - 3.4 /CUMM) 1.1 L 1.1 L Lymphocytes (20.5 - 51.1 %) 8 L Monocytes (1.7 - 9.3 %) 6 Absolute Monocytes (0.10 - 0.60 /CUMM) 1.2 H 1.3 H Eosinophils (0 - 5.0 %) 1 Absolute Eosinophils (0.0 - 0.7 /CUMM) 0.2 0.1 Absolute Basophils (0.0 - 0.2 /CUMM) 0 0 Platelet Estimate (ADEQUATE) VERIFIED BY SMEAR Normocytic RBCs VERIFIED Normochromic RBCs VERIFIED PUBS MCHC (33.0 - 37.0 G/DL) 33.7 33.3 Disposition Summary Disposition Principal Diagnosis: 1. Acute pancreatitis 2. Acute cholecystitis 3. New onset atrial fibrillation Additional Diagnosis: 1. HTN Discharge Disposition: home health services Discharge Instructions General Discharge Information Code Status: Full Code Patient's Diet: Heart healthy diet Patient's Activity: As tolerated Follow-Up Instructions/Appts: 1. Follow-up with your primary care physician in a week upon discharge 2. Follow-up with Dr. Long. Please call his office to make a follow-up appointment 3. Please refrain alcohol use 4. Please follow-up with Dr. Argueta in a week upon discharge Medications at Discharge Discharge Medications: Stop taking the following medications: Diclofenac Sodium (Diclofenac Sodium) 75 MG TABLET. ORAL TWICE DAILY Qty = 60 Continue taking these medications: Fluoxetine HCl (Fluoxetine HCl) 20 MG CAPSULE 1 Capsule ORAL DAILY Qty = 30 Comments: Last Taken: 09/12/16 Time: 9:30A.M Metoprolol Tartrate (Metoprolol Tartrate) 25 MG TABLET 1 Tablet ORAL TWICE DAILY Qty = 60 Comments: Last Taken: 09/12/16 Time: 9:30A.M Amlodipine Besylate/Benazepril (Amlodipine-Benazepril 5-40 MG) 5 MG-40 MG CAPSULE 1 Capsule ORAL DAILY Qty = 90 Comments: Last Taken: 09/12/16 Time: 09:30A.M Aspirin (Aspirin*) 81 MG TAB.CHEW 1 Tablet ORAL DAILY Comments: Last Taken:09/12/16 Time:09:30A.M Start taking the following new medications: Oxycodone HCl/Acetaminophen (Percocet 5-325 MG Tablet) 5 MG-325 MG TABLET 1 Tablet ORAL THREE TIMES DAILY as needed for PAIN Qty = 15 No Refills Comments: NOT GIVEN IN HOSPITAL Sennosides (Senna) 8.6 MG TABLET 2 Tablet ORAL TWICE DAILY Qty = 30 No Refills Comments: Last Taken:NOT GIVEN IN HOSPITAL Time: Apixaban (Eliquis) 5 MG TABLET 1 Tablet ORAL TWICE DAILY Qty = 60 No Refills Comments: NOT STARTED IN HOSPITAL Copies To: ESVIN LOVETT,TOBY; SUMI LOVETT,FIDEL Mitchell; SALOMÓN LOVETT,JACKY Mejia
--- NOTE | 2016-09-09 15:41 | PN- Gastroenterology ---
Assessment/Plan Assessment/Recommendations: 71-year-old male, HTN (on Lotrel & Toprol, none of these new), DJD (on Diclofenac), non-diabetic, mild hypercholesterolomia (nl TG in past), history of GERD on Omeprazole 20 mg every other day x years, history of colon tubulovillous adenoma and tubular adenoma, without any family history of GI disease, GI malignancy, inherited liver disease or inherited pancreatitis, who was fine until 09/06/2016, when he was driving to the [employer]. He had a bagel and cream cheese with a cup of coffee, followed shortly afterwards by epigastric/ periumbilical pain, localized nature, followed by multiple episodes (10) of nausea & vomiting, initially food content, then bilious, then dry heaves, without any hematemesis or melena. Please note, the patient is on baby aspirin daily, for colon polyp prophylaxis. The nausea and vomiting persisted throughout the day, and resolved. His epigastric/periumbilical symptoms persisted, prompting him to come to the [facility] ER the next day, 09/07/2016, when he arrived at 6:08 PM. GI was not notified that evening. Initial vital signs BP 126/76, PT 101, T 98.7, R 18, O2 sat RA 99%. The patient was hemodynamically stable. He was never hypotensive. He denied any confusion, jaundice, dark urine, light stools, or pruritus. He denied any chest pain or shortness of breath, but did admit to some diaphoresis. His Tm was 99.5. He was empirically put on Unasyn. He was noted to the hospitalist service with a tentative diagnosis of gallstone pancreatitis (see labs & imaging studies) & was seen by surgery. The symptoms were somewhat positional in that he felt better when supine, but he did not necessarily feel better when leaning forward. He received IV saline and morphine in the ER. He did not require any narcotic analgesics overnight. Patient admits to 2 drinks of alcohol daily, but denies any excessive alcohol intake otherwise. He denies any history of DTs, seizures, or withdrawal. He claims he can go days at a time without alcohol, without incident. He does not smoke. He has no previous history of gallbladder disease , peptic ulcer disease, or pancreatitis. He denies any previous abnormal liver function tests or hepatitis. There was no abdominal trauma or preceding viral syndrome. He denied any rashes or acute arthralgias, aside from his DJD. The patient denied any lower GI symptoms, and specifically denied any diarrhea, constipation, obstipation, or rectal bleeding. He denied any preceding change in weight or preceding change in appetite. He had no symptoms of UTI or URI. He denied any subjective fevers or chills. *01/01/2016: Normal LFTs. 05/21/03: Last EGD- Mild distal GERD, without Luna's esophagus, hiatal hernia , Z-line at 35 cm, mild gastritis, HP- negative. The patient has had numerous colonoscopies with removal of benign TVA & TA. 11/30/2012: Colonoscopy to the cecum- excessive left-sided diverticula, mild internal hemorrhoids, 5 mm hyperplastic sigmoid polyp. (*By dates, the patient is due for f/u surveillance colonoscopy in 11/2017). 09/07/16: Admission labs- WBC 17.7 (90% gran/16 gran Ab), H/H 15.6/46.6, MCV 97.6, PLT 231, glucose 110, BUN/Cr 16/0.8, GFR > 60, normal electrolytes, including bicarbonate 24, AG 13, lactate 1.4, A/L 515/7376, Ca 9.0, albumin 4.0, globulin 3.0, TBil 1.4/DBil 0.4, alk phos 84, AST 200, ALT 364, LDH 907, troponin .02. *No coags were sent, nor any TG level. *No admission EKG on chart. *For some reason, CT obtained by the ER bwas without IV contrast, severely limiting sensitivity and specificity for pancreatitis. 09/07/16: XR PORTABLE CHEST- No acute pulmonary findings. 09/07/16: CT ABDOMEN AND PELVIS WITHOUT CONTRAST (per ER)- Acute pancreatitis with spread of pancreatic enzymes to multiple sites as described above. And the limits of a non-IV contrast study, normal gallbladder, no dilated ducts, peripancreatic effusion extending to the transverse mesocolon, the paraduodenal space as well as the anterior pararenal spaces of the retroperitoneum. Pancreatic fluid also extends towards the right inguinal canal. Small amounts of ascites are present in the peritoneal cavity. No pseudocyst. Small fat-containing umbilical hernia. Numerous left-sided diverticula, without diverticulitis. DJD, especially L3-L4. 09/07/16: US ABDOMEN (RUQ) LIMITED- 1. The study demonstrates multiple echogenic gallbladder calculi. There is echogenic bile and the gallbladder wall is slightly thickened 3 mm. 2. The common bile duct has normal caliber 5 mm. 3. No focal hepatic lesion. 09/08/16: LFTs slowly improving. 09/07/16: EKG- NSR @ 81, normal axis, borderline 1st-degree AV block, no acute ischemia. 09/08/16: MR ABDOMEN WITHOUT CONTRAST; MR CHOLANGIOPANCREATOGRAPHY- No pancreatic or biliary ductal abnormality seen. No evidence for obstruction or intraluminal filling defects. Cholelithiasis. Peripancreatic edema consistent with known pancreatitis. Small amount of fluid extends into the right pericolic gutter. No fluid collection. No gross pancreatic parenchymal abnormality. 09/08/16: XR PORTABLE CHEST- No acute pulmonary findings. 09/08/16: *CRP > 9.0, *TG 45 09/09/16: *PT 13.9, INR 1.33 *As of 09/09/16, the patient remains hemodynamically stable and afebrile. He has no chills & is no longer diaphoretic. He tolerated clears. His abdominal pain is improved. He has minimal bloating. He denies any nausea, vomiting or jaundice. There is no confusion, chest pain or shortness of breath. CIWA- 0. The patient is scheduled for laparoscopic CCKY on 09/10/2016, per Dr. Long. LFTs and leukocytosis are improving. *Most likely, gallstone pancreatitis, by labs and imaging studies. On admission, 09/07/16: 3 grave signs by [place] criteria (elevated age, LDH, WBC), with only 1 grave sign by [employer] criteria (elevated age). There were no pleural effusions on chest x-ray. Unfortunately, the admission CT was significantly limited with the lack of IV contrast. Alcohol intake is moderate, but probably not contributory. He is a nonsmoker. Of note, the patient is on Diclofenac. He is also on Lotrel , which contains an KARINA inhibitor, but this is probably not causative. He was not hypotensive. There was no change in mental status. Clinically, I do not think the patient has cholangitis. Clinically without cholecystitis at present, with negative Buckley sign, although borderline thickened GB wall. SUGGEST: Clears, then NPO after 11:59 p.m. tonight for tentative lap CCKY per Dr. Long, on Tuesday09/10/16, as CBD clean on MRCP. IV Lactated Ringer's @ 100cc/hr for now. Strict I's and O's. Supplemental O2 as needed. Analgesics. Zofran as needed. Consider holding Lotrel. *No NSAIDs. Continue PPI for GERD. Agree with empiric Unasyn 3 g IV Q6h for now, in view of leukocytosis, cholelithiasis and questionable thickened gallbladder wall. Thiamine, folate, multivitamin. Ativan as needed. Serial CIWA. DVT prophylaxis. Recent studies have shown similar outcomes if cholecystectomy is done during the acute admission vs. within 1 month of admission for gallstone pancreatitis. As an aside, by dates, the patient is due for follow-up surveillance colonoscopy for polyp surveillance in 11/2017. The above was previoulsy discussed with the hospitalist service & earlier today with Dr. Long. Further inpatient GI follow up as needed, as post-CCKY care will be assumed by Dr. Long. Problem List: 1. Pancreatitis 2. Gall stones 3. Abnormal LFTs 4. Abdominal pain 5. Umbilical hernia 6. Diverticula of colon 7. GERD (gastroesophageal reflux disease) 8. History of adenomatous polyp of colon Subjective Subjective: 09/07/16: EKG- NSR @ 81, normal axis, borderline 1st-degree AV block, no acute ischemia. 09/08/16: MR ABDOMEN WITHOUT CONTRAST; MR CHOLANGIOPANCREATOGRAPHY- No pancreatic or biliary ductal abnormality seen. No evidence for obstruction or intraluminal filling defects. Cholelithiasis. Peripancreatic edema consistent with known pancreatitis. Small amount of fluid extends into the right pericolic gutter. No fluid collection. No gross pancreatic parenchymal abnormality. 09/08/16: XR PORTABLE CHEST- No acute pulmonary findings. 09/08/16: *CRP > 9.0, *TG 45 09/09/16: *PT 13.9, INR 1.33 *As of 09/09/16, the patient remains hemodynamically stable and afebrile. He has no chills & is no longer diaphoretic. He tolerated clears. His abdominal pain is improved. He has minimal bloating. He denies any nausea, vomiting or jaundice. There is no confusion, chest pain or shortness of breath. CIWA- 0. The patient is scheduled for laparoscopic CCKY on 09/10/2016, per Dr. Long. LFTs and leukocytosis are improving. Review of Systems: Full 14 point review of systems otherwise noncontributory, and as above. Constitutional: Reports: diaphoresis- better Denies: see HPI, chills, fever, malaise, weakness. EENTM: Denies: no symptoms. Cardiovascular: Denies: chest pain, edema, palpitations, syncope. Respiratory: Denies: cough, hemoptysis, orthopnea, short of breath, sputum production, stridor, wheezing. GI: Reports: bloating & distention, abdominal pain/nausea/vomiting- all improved. Denies: constipation, diarrhea, melena, bloody stool. Genitourinary: Denies: no symptoms, discharge, frequency, hematuria. Musculoskeletal: Denies: back pain, joint pain. Skin: Denies: no symptoms. Neurological/Psychological: Denies: anxiety, depressed, dementia, emotional problems, headache, numbness, tingling, tremors. Objective Vital Signs and I&Os Vital Signs Date Time Temp Pulse Resp B/P Pulse O2 O2 Flow FiO2 Ox Delivery Rate 09/09 1423 98.3 74 20 132/86 94 Room Air 09/09 0942 77 130/70 09/09 0942 77 130/70 09/09 0713 98.7 77 20 130/70 94 Room Air 09/08 2233 98.5 73 20 134/72 93 Room Air 09/08 2136 73 134/72 09/08 2136 73 134/72 09/08 1721 67 153/65 Intake & Output 09/09 1600 09/09 0400 09/08 1600 09/08 0400 09/07 1600 09/07 0400 Intake Total 2400 1150 2800 1000 Output Total Balance 2400 1150 2800 1000 Intake, IV 1600 1150 2800 1000 Intake, Oral 800 0 Patient 230 lb 230 lb Weight Physical Exam: Well-developed, well-nourished male, no longer diaphoretic, in no apparent distress. Sclera anicteric. Conjunctiva pink. Oropharynx clear. No oral thrush. No aphthous ulcers. There is no adenopathy, thyromegaly, or JVD. No peripheral stigmata of inflammatory bowel disease or chronic liver disease on exam. No spiders on the anterior chest wall. No gynecomastia. No CVA tenderness. Lungs: clear to A&P. Heart exam: regular rate rhythm, S1 and S2, without any murmur. Abdominal exam: Slightly hypoactive bowel sounds, moderately distended belly, currently nontender, without guarding or rebound. Small reducible umbilical hernia, otherwise no mass. No organomegaly. Negative Buckley sign at present. No definite fluid shift. No pulsatile mass. No epigastric bruit. Digital rectal exam: currently deferred (API). Extremities: without C, C, or E. No palpable cords. DJD. No rash. No palmar erythema. No Dupuytren's contractures. Distal pulses 2+ bilaterally. DTRs 2+ bilaterally. Alert and oriented x 3. Nonfocal. No tremor. No asterixis. Current Medications: Current Medications Sig/Mariana Start time Last Medication Dose Route Stop Time Status Admin Amlodipine Besylate 5 MG DAILY 09/08 1615 AC 09/09 PO 0942 Ampicillin Sodium/ 3,000 MG Q6H 09/08 0100 AC 09/09 Sulbactam Sodium IV 1300 Sodium Chloride 100 ML Diphenhydramine HCl 25 MG Q6P PRN 09/07 2215 AC IV Fluoxetine HCl 20 MG DAILY 09/09 1000 AC 09/09 PO 0942 Folic Acid 1 MG DAILY 09/08 1000 AC 09/09 PO 0942 Hydromorphone HCl 0.5 MG Q4P PRN 09/07 2215 AC 09/08 IV 2136 Lactated Ringer's 1,000 ML Q10H 09/09 1445 AC 09/09 IV 1438 Lactated Ringer's 1,000 ML Q5H 09/07 2330 DC 09/09 IV 09/09 0528 0019 Lorazepam 0 Q1P PRN 09/07 2300 AC IV Metoprolol Tartrate 25 MG BID 09/08 1451 AC 09/09 PO 0942 Ondansetron HCl 4 MG Q6P PRN 09/07 2215 AC IV Results Pertinent Lab Results: Laboratory Tests 09/09 09/08 0640 0644 Chemistry Sodium (137 - 145 mmol/L) 139 139 Potassium (3.5 - 5.1 mmol/L) 3.8 3.7 Chloride (98 - 107 mmol/L) 108 H 109 H Carbon Dioxide (22 - 30 mmol/L) 24 24 Anion Gap (5 - 16) 7 6 BUN (9 - 20 mg/dL) 14 14 Creatinine (0.7 - 1.2 mg/dL) 0.8 0.8 Estimated GFR (>60 ml/min) > 60 > 60 BUN/Creatinine Ratio (7 - 25 %) 17.5 17.5 Total Bilirubin (0.2 - 1.3 mg/dL) 1.3 1.3 Direct Bilirubin (< 0.4 mg/dL) 0.5 H 0.4 AST (17 - 59 U/L) 62 H 107 H ALT (21 - 72 U/L) 147 H 225 H Alkaline Phosphatase (< 127 U/L) 65 66 C-Reactive Prot, Quant (<1.0 mg/dL) > 9.0 H C-React Prot High Sens (1.0 - 3.0 mg/L) > 15.0 H Total Protein (6.3 - 8.2 g/dL) 5.4 L 5.7 L Albumin (3.5 - 5.0 g/dL) 2.8 L 3.0 L Triglycerides (<150 mg/dL) 45 Coagulation PT (9.4 - 12.5 SEC) 13.9 H INR (0.90 - 1.17) 1.33 H Hematology CBC w Diff MAN DIFF ORDERED NO MAN DIFF REQ WBC (4.8 - 10.8 /CUMM) 13.8 H 16.4 H RBC (4.70 - 6.10 /CUMM) 3.83 L 4.01 L Hgb (14.0 - 18.0 G/DL) 12.6 L 13.4 L Hct (42 - 52 %) 37.5 L 39.5 L MCV (80.0 - 94.0 FL) 97.9 H 98.3 H MCH (27.0 - 31.0 PG) 33.0 H 33.3 H RDW (11.5 - 14.5 %) 13.4 13.6 Plt Count (130 - 400 /CUMM) 161 175 MPV (7.4 - 10.4 FL) 9.2 9.0 Gran % (42.2 - 75.2 %) 87.5 H 86.6 H Lymphocytes % (20.5 - 51.1 %) 6.5 L 7.1 L Monocytes % (1.7 - 9.3 %) 5.8 6.2 Eosinophils % (0 - 5 %) 0.1 0 Basophils % (0.0 - 2.0 %) 0.1 0.1 Absolute Granulocytes (1.4 - 6.5 /CUMM) 12.1 H 14.2 H Segmented Neutrophils (42.2 - 75.2 %) 84 H Band Neutrophils (0.0 - 5.0 %) 6 H Absolute Lymphocytes (1.2 - 3.4 /CUMM) 0.9 L 1.2 Lymphocytes (20.5 - 51.1 %) 5 L Monocytes (1.7 - 9.3 %) 5 Absolute Monocytes (0.10 - 0.60 /CUMM) 0.8 H 1.0 H Absolute Eosinophils (0.0 - 0.7 /CUMM) 0 0 Absolute Basophils (0.0 - 0.2 /CUMM) 0 0 Platelet Estimate (ADEQUATE) VERIFIED BY SMEAR Normocytic RBCs VERIFIED Normochromic RBCs VERIFIED PUBS MCHC (33.0 - 37.0 G/DL) 33.7 33.9 09/07 09/07 2121 1837 Chemistry Sodium (137 - 145 mmol/L) 140 Potassium (3.5 - 5.1 mmol/L) 3.7 Chloride (98 - 107 mmol/L) 104 Carbon Dioxide (22 - 30 mmol/L) 24 Anion Gap (5 - 16) 13 BUN (9 - 20 mg/dL) 16 Creatinine (0.7 - 1.2 mg/dL) 0.8 Estimated GFR (>60 ml/min) > 60 BUN/Creatinine Ratio (7 - 25 %) 20.0 Glucose (65 - 99 mg/dL) 110 H Lactic Acid (0.7 - 2.1 mmol/L) Cancelled 1.4 Calcium (8.4 - 10.2 mg/dL) 9.0 Total Bilirubin (0.2 - 1.3 mg/dL) 1.4 H Direct Bilirubin (< 0.4 mg/dL) 0.4 AST (17 - 59 U/L) 200 H ALT (21 - 72 U/L) 364 H Alkaline Phosphatase (< 127 U/L) 84 Lactate Dehydrogenase (313 - 618 U/L) 907 H Troponin I (<0.11 ng/ml) 0.02 Total Protein (6.3 - 8.2 g/dL) 7.0 Albumin (3.5 - 5.0 g/dL) 4.0 Globulin (1.9 - 4.2 gm/dL) 3.0 Albumin/Globulin Ratio (1.1 - 2.2 %) 1.3 Amylase (30 - 110 U/L) 515 H Lipase (23 - 300 U/L) 7376 H Hematology CBC w Diff NO MAN DIFF REQ WBC (4.8 - 10.8 /CUMM) 17.7 H RBC (4.70 - 6.10 /CUMM) 4.77 Hgb (14.0 - 18.0 G/DL) 15.6 Hct (42 - 52 %) 46.6 MCV (80.0 - 94.0 FL) 97.6 H MCH (27.0 - 31.0 PG) 32.7 H RDW (11.5 - 14.5 %) 13.6 Plt Count (130 - 400 /CUMM) 231 MPV (7.4 - 10.4 FL) 8.9 Gran % (42.2 - 75.2 %) 90.2 H Lymphocytes % (20.5 - 51.1 %) 5.2 L Monocytes % (1.7 - 9.3 %) 4.6 Eosinophils % (0 - 5 %) 0 Basophils % (0.0 - 2.0 %) 0 L Absolute Granulocytes (1.4 - 6.5 /CUMM) 16.0 H Absolute Lymphocytes (1.2 - 3.4 /CUMM) 0.9 L Absolute Monocytes (0.10 - 0.60 /CUMM) 0.8 H Absolute Eosinophils (0.0 - 0.7 /CUMM) 0 Absolute Basophils (0.0 - 0.2 /CUMM) 0 PUBS MCHC (33.0 - 37.0 G/DL) 33.5 Imaging/Other Studies: 09/07/16: XR PORTABLE CHEST- No acute pulmonary findings. 09/07/16: CT ABDOMEN AND PELVIS WITHOUT CONTRAST (per ER)- Acute pancreatitis with spread of pancreatic enzymes to multiple sites as described above. And the limits of a non-IV contrast study, normal gallbladder, no dilated ducts, peripancreatic effusion extending to the transverse mesocolon, the paraduodenal space as well as the anterior pararenal spaces of the retroperitoneum. Pancreatic fluid also extends towards the right inguinal canal. Small amounts of ascites are present in the peritoneal cavity. No pseudocyst. Small fat-containing umbilical hernia. Numerous left-sided diverticula, without diverticulitis. DJD, especially L3-L4. 09/07/16: US ABDOMEN (RUQ) LIMITED- 1. The study demonstrates multiple echogenic gallbladder calculi. There is echogenic bile and the gallbladder wall is slightly thickened 3 mm. 2. The common bile duct has normal caliber 5 mm. 3. No focal hepatic lesion. 09/07/16: EKG- NSR @ 81, normal axis, borderline 1st-degree AV block, no acute ischemia. 09/08/16: MR ABDOMEN WITHOUT CONTRAST; MR CHOLANGIOPANCREATOGRAPHY- No pancreatic or biliary ductal abnormality seen. No evidence for obstruction or intraluminal filling defects. Cholelithiasis. Peripancreatic edema consistent with known pancreatitis. Small amount of fluid extends into the right pericolic gutter. No fluid collection. No gross pancreatic parenchymal abnormality. 09/08/16: XR PORTABLE CHEST- No acute pulmonary findings.
[2016-09-09 23:01] VITALS: BP 136/62
[2016-09-10 07:47] VITALS: BP 120/83
[2016-09-10 08:41] LABS: ABSOLUTE BASOPHIL COUNT 0 /CUMM (0.0-0.2); ABSOLUTE EOSINOPHIL COUNT 0.1 /CUMM (0.0-0.7); ABSOLUTE LYMPH COUNT 0.9 /CUMM (1.2-3.4); BASOPHIL % 0.1 % (0.0-2.0); EOSINOPHIL % 0.5 % (0-5); HEMATOCRIT 37.1 % (42-52); MEAN CORPUSCULAR HGB 33.3 PG (27.0-31.0); MEAN CORPUSCULAR HGB CONC 33.7 G/DL (33.0-37.0); MEAN CORPUSCULAR VOLUME 98.7 FL (80.0-94.0); MEAN PLATELET VOLUME 9.2 FL (7.4-10.4); RBC DISTRIBUTION WIDTH 13.4 % (11.5-14.5); RED BLOOD CELL CT 3.76 /CUMM (4.70-6.10); WHITE BLOOD CELL COUNT 14.1 /CUMM (4.8-10.8)
--- NOTE | 2016-09-10 09:14 | PN- Housestaff ---
MANOLO LOVETT,SIVAN 09/10/16 0914: Subjective Follow-up For: Gallstone Pancreatitis Subjective: Patient this morning was comfortable in bed. Had some abdominal discomfort over the last 24 hours which is read by medications. No overnight events noted. Denies nausea, vomiting, fever, chills. Currently nothing by mouth for laparoscopic cholecystectomy. Review of Systems Constitutional: Reports: see HPI. Objective Last 24 Hrs of Vital Signs/I&O Vital Signs Date Time Temp Pulse Resp B/P Pulse O2 O2 Flow FiO2 Ox Delivery Rate 09/10 1435 97.9 83 20 130/62 96 Nasal 4.0L Cannula 09/10 0747 98.8 87 20 120/83 96 Room Air 09/10 0745 80 136/62 09/10 0745 80 136/62 09/09 2301 99.3 81 18 136/62 94 Room Air 09/09 2056 99.9 81 16 142/74 Intake & Output 09/10 1600 09/10 0800 09/10 0000 Intake Total 200 1260 780 Output Total Balance 200 1260 780 Intake, IV 200 900 300 Intake, Oral 360 480 Physical Exam General Appearance: Alert, Oriented X3, Cooperative, No Acute Distress Skin: No Rashes HEENT: Atraumatic, DRY MUCOUS MEMBRANE Cardiovascular: Regular Rate, Normal S1, Normal S2, No Murmurs Lungs: Clear to Auscultation Abdomen: Normal Bowel Sounds, Soft, MILD DISCOMFORT NOTED ON THE RIGHT UPPER QUADRANT Neurological: Normal Gait Extremities: No Clubbing, No Cyanosis, No Edema Current Medications: Current Medications Sig/Mariana Start time Last Medication Dose Route Stop Time Status Admin Amlodipine Besylate 5 MG DAILY 09/11 1000 AC PO Amlodipine Besylate 5 MG DAILY 09/08 1615 DC 09/10 PO 0745 Ampicillin Sodium/ 3,000 MG Q6H 09/10 1900 AC Sulbactam Sodium IV Sodium Chloride 100 ML Ampicillin Sodium/ 3,000 MG Q6H 09/08 0100 AC 09/10 Sulbactam Sodium IV 09/10 1859 0620 Sodium Chloride 100 ML Diphenhydramine HCl 25 MG Q6P PRN 09/10 1430 AC IV Diphenhydramine HCl 25 MG Q6P PRN 09/07 2215 DC IV Fluoxetine HCl 20 MG DAILY 09/11 1000 AC PO Fluoxetine HCl 20 MG DAILY 09/09 1000 DC 09/10 PO 0745 Folic Acid 1 MG DAILY 09/11 1000 AC PO Folic Acid 1 MG DAILY 09/08 1000 DC 09/10 PO 0745 Hydromorphone HCl 0.5 MG Q4P PRN 09/10 1430 AC IV Hydromorphone HCl 0.5 MG Q4P PRN 09/07 2215 DC 09/09 IV 1742 Lactated Ringer's 1,000 ML Q10H 09/10 2045 AC IV Lactated Ringer's 1,000 ML Q10H 09/09 1445 AC 09/10 IV 09/10 2044 1053 Lorazepam 0 Q1P PRN 09/10 1430 AC IV Lorazepam 0 Q1P PRN 09/07 2300 DC IV Metoprolol Tartrate 25 MG BID 09/10 2200 AC PO Metoprolol Tartrate 25 MG BID 09/08 1451 DC 09/10 PO 0745 Ondansetron HCl 4 MG Q6P PRN 09/10 1430 AC IV Ondansetron HCl 4 MG Q6P PRN 09/07 2215 DC IV Oxycodone HCl 5 MG Q6-PRN PRN 09/10 1430 AC PO Oxycodone HCl 10 MG Q6-PRN PRN 09/10 1430 AC PO Patient Medication 1 ED .STK-MED ONE 09/10 1338 SD Teaching ED 09/10 1339 Last 24 Hrs of Lab/Elder Results Last 24 Hrs of Labs/Mics: Laboratory Tests 09/10/16 0750: CBC w Diff NO MAN DIFF REQ, RBC 3.76 L, MCV 98.7 H, MCH 33.3 H, RDW 13.4, MPV 9.2, Gran % 85.5 H, Lymphocytes % 6.7 L, Monocytes % 7.2, Eosinophils % 0.5, Basophils % 0.1, Absolute Granulocytes 12.0 H, Absolute Lymphocytes 0.9 L, Absolute Monocytes 1.0 H, Absolute Eosinophils 0.1, Absolute Basophils 0, PUBS MCHC 33.7 Assessment/Plan Assessment: 71 Y/O Male presented with complaints of nausea, vomiting, abdominal pain with CAT scan and lab showing evidence of acute pancreatitis. His BISAP score on admission was 1. 1. Acute pancreatitis due to gallstone: - Patient nothing by mouth for laparoscopic cholecystectomy - Would continue IV fluids 2. Acute cholecystitis status post laparoscopic cholecystectomy - Patient received 3 days of antibiotics - will discontinue IV antibiotics. He has been afebrile with negative cultures. 2. Chronic EtOH use: - CIWA score has been 0 - He is on Ativan IV when necessary which has not received any since admission 3. Hypertension: - Restarted blood pressure medication including amlodipine and metoprolol XL-we' ll restart Benzapril in a.m. DVT prophylaxis withALPS FULL CODE STATUS Problem List: 1. Pancreatitis 2. Gall stones Pain Ratin Pain Location: Right upper quadrant Pain Goal: Remain pain free Pain Plan: As mentioned Tomorrow's Labs & Rationales: Will need postop labs KASHMIR LOVETT,RYLEE 09/10/16 1407: Attending MD Review Statement Attending Statement Attending MD Statement: examined this patient, discuss w/resident/PA/PRINT OPERATOR, agreed w/resident/PA/PRINT OPERATOR, reviewed EMR data (avail), discussed with nursing, discussed with case mgmt, reviewed images Attending Assessment/Plan: I saw the patient early this a.m. and he knew he was going for a laparoscopic cholecystectomy. He was eager to be discharged after his laparoscopic cholecystectomy. He said the Dr. Long told him that if everything goes well in the OR that he could likely be discharged today after dinner. However later on the resident told me that when he was in the surgery he had a brief transient episode of an abnormal rhythm that they think his atrial flutter however no 12- lead EKG was obtained then. For now we are going to watch him on telemetry, watch him at least for 24 hours to make sure he doesn't have A. fib flutter, get cardiology on board and follow-up.
--- NOTE | 2016-09-10 09:14 | Patient Discharge Instructions ---
Discharge Instructions General Discharge Information You were seen/treated for: Gallbladder inflammation most likely due to gallstones Irregular heart rate You had these procedures: Laparoscopic cholecystectomy Watch for these problems: Pain, fever, abdominal swelling, chills Special Instructions: 1. Follow-up with your primary care physician in a week upon discharge 2. Follow-up with Dr. Long. Please call his office to make a follow-up appointment 3. Please refrain alcohol use 4. Please follow-up with Dr. Argueta in a week upon discharge Diet Recommended Diet: Heart Healthy Activity Full Activity/No Limits: Yes Acute Coronary Syndrome Inclusion Criteria At DC or during hospital stay patient has or had the following: ACS DIAGNOSIS No Discharge Core Measures Meds if any: Prescribed or Continued at Discharge Meds if any: NOT Prescribed or Continued at Discharge Congestive Heart Failure Inclusion Criteria At DC or during hospital stay patient has or had the following: CHF DIAGNOSIS No Discharge Core Measures Meds if any: Prescribed or Continued at Discharge Meds if any: NOT Prescribed or Continued at Discharge Cerebrovascular accident Inclusion Criteria At DC or during hospital stay patient has or had the following: CVA/TIA Diagnosis No Discharge Core Measures Meds if any: Prescribed or Continued at Discharge Meds if any: NOT Prescribed or Continued at Discharge Venous thromboembolism Inclusion Criteria VTE Diagnosis No VTE Type NONE VTE Confirmed by (Test) NONE Discharge Core Measures - Per Current guidelines, there needs to be overlap - treatment for the first 5 days of Warfarin therapy. - If discharged on Warfarin prior to 5 days of - overlap therapy, the patient will need to be - assessed for post discharge needs including - *Post discharge parental anticoagulation - *Warfarin and/or parental anticoagulation education - *Follow up date to check INR post discharge At least 5 days overlap therapy as Inpatient No Meds if any: Prescribed or Continued at Discharge Note: Overlap Therapy is Warfarin and Anticoagulant Meds if any: NOT Prescribed or Continued at Discharge
[2016-09-10 09:18] LABS: GRANULOCYTE % 85.5 % (42.2-75.2); PLATELET COUNT 189 /CUMM (130-400)
--- NOTE | 2016-09-10 11:10 | NUR ---
NURSING NOTE: PT OFF FLOOR TO OR. IV LEAKING, ALYSE IN OR NOTIFIED AND ADVISED TO SEND PT AND IV WILL BE STARTED IN OR.
--- NOTE | 2016-09-10 14:12 | Operative Report ---
Operative/Inv Procedure Report Surgery Date: 09/10/16 Name of Procedure: Laparoscopic cholecystectomy Pre-Operative Diagnosis: 1. Gallstone pancreatitis Post-Operative Diagnosis: Same Acute cholecystitis Estimated Blood Loss: scant Surgeon/Hopper Attendant: Jeronimo Long M.D./[facility] Anesthesia: general endotracheal tube Specimens: Gallbladder Operative/Procedure Note Note: After informed consent patient is brought to the operating room and laid supine. General anesthesia was obtained and her abdomen was prepped and draped. The skin above the umbilicus infiltrated with local anesthesia and a curvilinear incision made sharply. We came down through the subcutaneous tissues bluntly and grasped the fascia with Fela's. A fasciotomy was created sharply and stay sutures placed. The peritoneum was entered sharply and a blunt Perez port was placed. Pneumoperitoneum was achieved. Visualization was difficult due to omental adhesions to the anterior abdominal wall. There were able to find a window to the left upper quadrant and then over to the right with the camera. 3 , 5 mm ports were placed in the epigastrium and right upper quadrant after local anesthesia was instilled and under direct vision the camera. he's placed in reverse Trendelenburg and rotated towards the left. The gallbladder is identified. It was grasped at the dome and retracted towards the head. Infundibulum was then grasped. Adhesions to the undersurface were taken down with blunt and cautery dissection. There is diffuse hyperemia of the gallbladder wall. Multiple impacted stones in the infundibulum were reduced back up into the gallbladder . We dissected both sides the triangle Calot peritoneal tissue with cautery. The artery was medial and its normal anatomic position. It was cauterized medially to allow it to be mobilized away from the duct. [place] was cleared of areolar tissue with cautery. The artery and duct were doubly ligated with clips. Gallbladder is removed from the fossa electrocautery. It was placed in Endo Catch bag and cinched up. Right upper quadrant was and suction irrigated normal saline. Hemostasis achieved with cautery. The ports were then removed and the gallbladder delivered and passed off the field. The fascia was closed with 0 Vicryl suture. Skin incisions closed with 4-0 Vicryl. Steri-Strips and sterile dressing applied. Sponge and needle counts are correct. Discharge Disposition: telemetry Additional Comments: While in the PACU, an EKG was performed due to the presence of intermittent atrial flutter during the surgery. Findings on EKG showed new atrial fibrillation. Appropriate cardiac consultation and telemetry admission made CC: JACKY LORENZANA MD
--- NOTE | 2016-09-10 14:30 | NUR ---
PATIENT ARRIVED ON FLOOR VIA STRETCHER FROM PACU. ALERT AND ORIENTATED X3. VSS. 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 PATIENT DENIES PAIN. O2 AT 4L VIA NC. NO RESP DISTRESS NOTED. ABD DISTENDED SOFT. HYPOACTIVE BS. C/O DRY MOUTH. ICE CHIPS GIVEN. ORIENTATED TO ROOM AND CALL LIGHT. WILL FOLLOW PLAN OF CARE.
[2016-09-10 14:35] VITALS: BP 130/62
--- NOTE | 2016-09-10 15:28 | PN- General Surgery ---
Subjective Subjective: Postop note: 71-year-old male status post left Cholecystectomy earlier today. The surgery itself well without complications however during the surgery patient suffered a new onset of atrial fibrillation. No history of same. Medical team was aware, discussed with Dr. Luz Yousif, a cardiology consult was called. Patient states he has no complaints, no palpitations, no abdominal pain no nausea no vomiting. Objective Vital Signs and I&Os Vital Signs Date Time Temp Pulse Resp B/P Pulse O2 O2 Flow FiO2 Ox Delivery Rate 09/10 1435 97.9 83 20 130/62 96 Nasal 4.0L Cannula 09/10 0747 98.8 87 20 120/83 96 Room Air 09/10 0745 80 136/62 09/10 0745 80 136/62 09/09 2301 99.3 81 18 136/ 94 Room Air 09/09 2056 99.9 81 16 142/74 Intake & Output 09/10 1600 09/10 0800 09/10 0000 09/09 1600 09/09 0800 09/09 0000 Intake Total 200 1260 382 295 4067 1150 Output Total Balance 200 1260 100 028 5248 1150 Intake, IV 200 387 983 1492 1150 Intake, Oral 360 480 800 0 Physical Exam: Well-developed well-nourished no apparent distress. HEENT: Atraumatic, extraocular motion intact Neck: Supple, no lymphadenopathy Heart: Irregularly irregular approximately 70 bpm Respiratory: No respiratory distress clear to auscultation bilateral. Abdomen: Soft, nontender nondistended, dressings clean dry and intact Extremities: No edema, no calf pain Neuro: Alert and oriented x3 Psych: Mood affect normal, normal memory normal judgment. Skin: Warm and dry, no rash on exposed skin Assessment/Plan Assessment/Plan Postop day 0 status post laparoscopic cholecystectomy -Patient stable from a surgical standpoint -Advance diet as tolerated -DVT prophylaxis -Pain medication as needed -Follow up in the office in [address] Long -New-onset atrial fibrillation, medicine aware and they have called a cardiology consult. Core Measures/Miscellaneous Venous Thromboembolism VTE Risk Factors: Age > 40, Surgery VTE Contraindications: No Contraindications VTE Diagnosis: No VTE Type: NONE VTE Confirmed by (Test): NONE Beta Bradley Is Beta Bradley a Home Med? No Antibiotics Is Patient on Antibiotics? Yes If Yes: infection
--- NOTE | 2016-09-10 15:43 | Event Note ---
See Addendum Event Note Event Note: Called by surgical be as patient was in atrial flutter during the procedure. Postop EKG was obtained which showed atrial fibrillation, rate controlled. On patient interview he appeared comfortable. Denied chest pain, palpitations. 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 Has had cardiac cath done in the past which was normal according to the patient ( add was indicated as he had recurrent palpitations). Does not give previous history of atrial fibrillation. On examination alert oriented, comfortable, not in distress Cardiovascular: S1, S2 irregular Respiratory: Bilateral breath sounds equal, no wheeze Abdomen: Soft, bowel sounds sluggish, dressing intact Extremities: No pedal edema Assessment and plan 1. New onset atrial fibrillation rate controlled. - Will monitor patient in telemetry - Cardiology consult obtained - CHADS Vasc score is 2. He will require anticoagulation based on the chads VASC score, but given his recent surgery he is at a very high risk of bleeding. - Discussed with cardiology and patient should follow-up with Dr. Argueta in a week upon discharge - Plan for anticoagulation will be discussed at his follow-up visit. - Will continue on metoprolol and aspirin 81 [address] Long over phone and as per his rec will start abx - He can be safely started on Aspirin now - We will start the aspirin in AM
[2016-09-10] MEDS ORDERED: SENNA8.6 M3 PO (15:55)
[2016-09-10] MEDS ORDERED: PERCOCET 5-3251 EACH PO (15:55)
--- NOTE | 2016-09-10 15:55 | Cons- Cardiology ---
General Information and HPI Consulting Request Date of Consult: 09/10/16 Requested By: KASHMIR LOVETT,RYLEE Mejia Reason for Consult: New onset atrial fibrillation Source of Information: patient History of Present Illness: This is a pleasant 71-year-old male with a past medical history of hypertension, hyperlipidemia, and GERD who initially presented to [facility] with a chief complaint of nausea, vomiting, and abdominal pain. The patient was subsequently found to have gallstone pancreatitis and underwent laparoscopic cholecystectomy today. During surgery he was noted to be in onset atrial fibrillation. The patient denies any history of atrial fibrillation. He says he has undergone remote cardiac catheterization for atypical chest pain which did not show significant coronary artery disease per his report. He reports having a stress test a few years ago which she says was normal. He denies any chronic exertional chest pain, dyspnea, palpitations, syncope, headache, slurring of speech, or focal weakness. He also denies paroxysmal nocturnal dyspnea or orthopnea. The patient is currently comfortable with no sensation of palpitations despite being in new onset atrial fibrillation. He does endorse EtOH use approximately one to 2 drinks daily. Allergies/Medications Allergies: Coded Allergies: No Known Allergies (09/07/16) Home Med List: Amlodipine Besylate/Benazepril (Amlodipine-Benazepril 5-40 MG) 5 MG-40 MG CAPSULE 1 CAP PO DAILY HTN (Reported) Aspirin (Aspirin*) 81 MG TAB.CHEW 1 TAB PO DAILY CARDIAC (Reported) Diclofenac Sodium 75 MG TABLET.DR 1 TAB PO BID PAIN (Reported) Fluoxetine HCl 20 MG CAPSULE 1 CAP PO DAILY MENTAL HEALTH (Reported) Metoprolol Tartrate 25 MG TABLET 1 TAB PO BID HTN (Reported) Current Medications: Current Medications Sig/Mariana Start time Last Medication Dose Route Stop Time Status Admin Amlodipine Besylate 5 MG DAILY 09/11 1000 AC PO Amlodipine Besylate 5 MG DAILY 09/08 1615 DC 09/10 PO 0745 Ampicillin Sodium/ 3,000 MG Q6H 09/10 1900 AC Sulbactam Sodium IV Sodium Chloride 100 ML Ampicillin Sodium/ 3,000 MG Q6H 09/08 0100 AC 09/10 Sulbactam Sodium IV 09/10 1859 0620 Sodium Chloride 100 ML Diphenhydramine HCl 25 MG Q6P PRN 09/10 1430 AC IV Diphenhydramine HCl 25 MG Q6P PRN 09/07 2215 DC IV Fluoxetine HCl 20 MG DAILY 09/11 1000 AC PO Fluoxetine HCl 20 MG DAILY 09/09 1000 DC 09/10 PO 0745 Folic Acid 1 MG DAILY 09/11 1000 AC PO Folic Acid 1 MG DAILY 09/08 1000 DC 09/10 PO 0745 Hydromorphone HCl 0.5 MG Q4P PRN 09/10 1430 AC IV Hydromorphone HCl 0.5 MG Q4P PRN 09/07 2215 DC 09/09 IV 1742 Lactated Ringer's 1,000 ML Q10H 09/10 2045 AC IV Lactated Ringer's 1,000 ML Q10H 09/09 1445 AC 09/10 IV 09/10 2044 1053 Lorazepam 0 Q1P PRN 09/10 1430 AC IV Lorazepam 0 Q1P PRN 09/07 2300 DC IV Metoprolol Tartrate 25 MG BID 09/10 2200 AC PO Metoprolol Tartrate 25 MG BID 09/08 1451 DC 09/10 PO 0745 Ondansetron HCl 4 MG Q6P PRN 09/10 1430 AC IV Ondansetron HCl 4 MG Q6P PRN 09/07 2215 DC IV Oxycodone HCl 5 MG Q6-PRN PRN 09/10 1430 AC PO Oxycodone HCl 10 MG Q6-PRN PRN 09/10 1430 AC PO Patient Medication 1 ED .STK-MED ONE 09/10 1338 PR Teaching ED 09/10 1339 Review of Systems Review of Systems: Review of systems as per HPI. The remainder of a 10 point review of systems was reviewed and was otherwise negative. 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 FATHER, , Age 94; Cause: Pneumonia. Psychosocial History Where Do You Live? Home Who Do You Live With? spouse Services at Home: None Primary Language: Estonian Smoking Status: Never Smoked ETOH Use: occasional use, heavy use (2 drinks/day) Illicit Drug Use: denies illicit drug use Living Will? yes Power of Intelligence Research Specialist/HCP? yes Name of POA/HCP: patient's , Ninfa Garrett Other Social History: . Lives with . has MS. 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 2 drinks of alcohol daily. No cigarettes. No drugs. 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 One son and one daughter- both A&W. Functional Ability ADLs Independent: dressing, eating, toileting, bathing. Ambulation: independent IADLs Independent: shopping, housework, finances, food prep, telephone, transportation , medication admin. 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 Exam & Diagnostic Data Vital Signs and I&O Vital Signs Date Time Temp Pulse Resp B/P Pulse O2 O2 Flow FiO2 Ox Delivery Rate 09/10 1435 97.9 83 20 130/62 96 Nasal 4.0L Cannula 09/10 0747 98.8 87 20 120/83 96 Room Air 09/10 0745 80 136/62 09/10 0745 80 136/62 09/09 2301 99.3 81 18 136/62 94 Room Air 09/09 2056 99.9 81 16 142/74 Intake & Output 09/10 1600 09/10 0800 09/10 0000 09/09 1600 09/09 0800 09/09 0000 Intake Total 200 1260 467 200 8241 1150 Output Total Balance 200 1260 503 393 2576 1150 Intake, IV 200 441 163 7097 1150 Intake, Oral 360 480 800 0 Physical Exam: General: no apparent distress. Alert. Eyes: No obvious scleral icterus. HEENT: No jugular venous distention or abnormal jugular venous pulsations. Cardiovascular: Normal intensity S1/S2. Irregular. Respiratory: Lungs clear to auscultation bilaterally. Abdomen: no guarding or rebound tenderness. Musculoskeletal: No clubbing or cyanosis noted Skin: Warm Neurologic: No gross focal deficits noted. Lymph: No gross lymphadenopathy. Labs/Elder Results: Laboratory Tests 09/10 09/09 0750 0640 Chemistry Sodium (137 - 145 mmol/L) 139 Potassium (3.5 - 5.1 mmol/L) 3.8 Chloride (98 - 107 mmol/L) 108 H Carbon Dioxide (22 - 30 mmol/L) 24 Anion Gap (5 - 16) 7 BUN (9 - 20 mg/dL) 14 Creatinine (0.7 - 1.2 mg/dL) 0.8 Estimated GFR (>60 ml/min) > 60 BUN/Creatinine Ratio (7 - 25 %) 17.5 Total Bilirubin (0.2 - 1.3 mg/dL) 1.3 Direct Bilirubin (< 0.4 mg/dL) 0.5 H AST (17 - 59 U/L) 62 H ALT (21 - 72 U/L) 147 H Alkaline Phosphatase (< 127 U/L) 65 Total Protein (6.3 - 8.2 g/dL) 5.4 L Albumin (3.5 - 5.0 g/dL) 2.8 L TSH (0.270 - 4.200 uIU/mL) Pending Free T4 (0.78 - 2.44 ng/dL) Pending Coagulation PT (9.4 - 12.5 SEC) 13.9 H INR (0.90 - 1.17) 1.33 H Hematology CBC w Diff NO MAN DIFF REQ MAN DIFF ORDERED WBC (4.8 - 10.8 /CUMM) 14.1 H 13.8 H RBC (4.70 - 6.10 /CUMM) 3.76 L 3.83 L Hgb (14.0 - 18.0 G/DL) 12.5 L 12.6 L Hct (42 - 52 %) 37.1 L 37.5 L MCV (80.0 - 94.0 FL) 98.7 H 97.9 H MCH (27.0 - 31.0 PG) 33.3 H 33.0 H RDW (11.5 - 14.5 %) 13.4 13.4 Plt Count (130 - 400 /CUMM) 189 161 MPV (7.4 - 10.4 FL) 9.2 9.2 Gran % (42.2 - 75.2 %) 85.5 H 87.5 H Lymphocytes % (20.5 - 51.1 %) 6.7 L 6.5 L Monocytes % (1.7 - 9.3 %) 7.2 5.8 Eosinophils % (0 - 5 %) 0.5 0.1 Basophils % (0.0 - 2.0 %) 0.1 0.1 Absolute Granulocytes (1.4 - 6.5 /CUMM) 12.0 H 12.1 H Segmented Neutrophils (42.2 - 75.2 %) 84 H Band Neutrophils (0.0 - 5.0 %) 6 H Absolute Lymphocytes (1.2 - 3.4 /CUMM) 0.9 L 0.9 L Lymphocytes (20.5 - 51.1 %) 5 L Monocytes (1.7 - 9.3 %) 5 Absolute Monocytes (0.10 - 0.60 /CUMM) 1.0 H 0.8 H Absolute Eosinophils (0.0 - 0.7 /CUMM) 0.1 0 Absolute Basophils (0.0 - 0.2 /CUMM) 0 0 Platelet Estimate (ADEQUATE) VERIFIED BY SMEAR Normocytic RBCs VERIFIED Normochromic RBCs VERIFIED PUBS MCHC (33.0 - 37.0 G/DL) 33.7 33.7 Diagnostic Data EKG Results Tracing from 09/07 was personally reviewed and shows a sinus rhythm at 81 bpm with no infarct pattern ECG tracing from today reviewed shows atrial fibrillation at 77 bpm CXR Results 09/08 IMPRESSION: No acute pulmonary findings. Other Results MRCP IMPRESSION: No pancreatic or biliary ductal abnormality seen. No evidence for obstruction or intraluminal filling defects. Cholelithiasis. Peripancreatic edema consistent with known pancreatitis. Small amount of fluid extends into the right pericolic gutter. No fluid collection. No gross pancreatic parenchymal abnormality. Assessment/Plan Assessment/Plan 1. New onset atrial fibrillation detected during laparoscopic cholecystectomy 2. Gallstone pancreatitis 3. Hypertension 4. History of GERD The patient is in new onset atrial fibrillation but no associated symptoms. His heart rate is well-controlled on her current beta mukesh therapy. He is hemodynamically stable. His current CHADS-Vasc score is 2. Given his recent surgery we are not going to start him on full anticoagulation, would start daily aspirin when cleared by surgery. We'll keep on telemetry until tomorrow. He will follow-up with me in my office within one week of discharge and the if he remains in atrial fibrillation at that time I will consider initiating him on NOAC. If he reverts to sinus rhythm he would then be a candidate for monitoring for atrial fibrillation recurrence with event monitor and possibly loop recorder implant. He will need an echocardiogram which can be done in my office after discharge. He currently has no evidence of acute coronary syndrome or congestive heart failure. Discussed importance of decreased EtOH intake to help prevent recurrent atrial fibrillation. Amarjit Argueta MD FACC Consult Acknowledgment - Thank you for your consult request.
[2016-09-10 17:46] VITALS: BP 140/80
[2016-09-10 23:10] VITALS: BP 148/80
[2016-09-11 08:00] VITALS: BP 164/90
[2016-09-11 08:16] LABS: ABSOLUTE BASOPHIL COUNT 0 /CUMM (0.0-0.2); ABSOLUTE EOSINOPHIL COUNT 0.1 /CUMM (0.0-0.7); ABSOLUTE GRANULOCYTE CT 16.2 /CUMM (1.4-6.5); ABSOLUTE LYMPH COUNT 1.1 /CUMM (1.2-3.4); ABSOLUTE MONOCYTE COUNT 1.3 /CUMM (0.10-0.60); BASOPHIL % 0.1 % (0.0-2.0); EOSINOPHIL % 0.5 % (0-5); GRANULOCYTE % 86.4 % (42.2-75.2); HEMATOCRIT 39.4 % (42-52); MEAN CORPUSCULAR HGB CONC 33.3 G/DL (33.0-37.0); MEAN PLATELET VOLUME 9.4 FL (7.4-10.4); PLATELET COUNT 256 /CUMM (130-400); RBC DISTRIBUTION WIDTH 13.3 % (11.5-14.5); RED BLOOD CELL CT 3.98 /CUMM (4.70-6.10); WHITE BLOOD CELL COUNT 18.7 /CUMM (4.8-10.8)
[2016-09-11 08:23] VITALS: BP 164/90
--- NOTE | 2016-09-11 08:51 | PN- Housestaff ---
LAWANDA CHINCHILLA 09/11/16 0850: Subjective Follow-up For: Acute pancreatitis Hypertension New-onset atrial fibrillation Complaints: no complaints Tele-Events Since Last Visit: Atrial fibrillation, heart rate 86-93. Subjective: The patient was comfortable this morning. Did not have any complaints. He was anxious to go home. He was currently on 4 L oxygen with oxygen saturation above 92%, but desaturated to 86% on ambulation on room air. He was short of breath at that time. Explained to him that he has been requiring increasing amount of oxygen in the last 24-48 hours, and will be heme off oxygen in the next 24 hours to be able to discharged him without any supplemental oxygen. The daughter was at the bedside , and Dr. Moreira had an extensive discussion about risks versus benefits of being discharged. Mr. Garrett finally agreed to stay in the hospital until next morning, to wean off oxygen. Review of Systems Constitutional: Reports: see HPI. Objective Last 24 Hrs of Vital Signs/I&O Vital Signs Date Time Temp Pulse Resp B/P Pulse O2 O2 Flow FiO2 Ox Delivery Rate 09/11 0823 98.7 87 20 164/90 94 Nasal 4.0L Cannula 09/11 0626 94 Nasal 4.0L Cannula 09/11 0000 Nasal 4.0L Cannula 09/10 2310 98.1 80 20 148/80 93 Nasal Cannula 09/10 2124 92 158/84 09/10 1746 98.8 75 20 140/80 96 Nasal Cannula 09/10 1600 Nasal 4.0L Cannula 09/10 1435 97.9 83 20 130/62 96 Nasal 4.0L Cannula Intake & Output 09/11 1600 09/11 0800 09/11 0000 Intake Total 300 1280 Output Total 995 350 Balance -695 930 Intake, IV 800 Intake, Oral 300 480 Output, Urine 995 350 Physical Exam General Appearance: No Acute Distress Other Physical Findings: General Exam: AAOx2, No acute distress, Skin: No rashes, no breakdown HEENT: PERRLA, EOMI Neck: Supple, No JVD No cervical lymphadenopathy CVS: Reg Rate, Normal S1,S2, No MGR Resp: Normal air entry, no ronchi/rales Abdomen: Soft, No tenderness, Normal Bowel Sounds Neuro: Normal Speech, Strength 5/5 b/l x 4 extremities, Sensation intact, CN III -XII NL, Reflexes 2+ Extremities: No cyanosis, pedal edema Current Medications: Current Medications Sig/Mariana Start time Last Medication Dose Route Stop Time Status Admin Acetaminophen 1,000 MG .STK-MED ONE 09/10 1129 DC IV 09/10 1130 Amlodipine Besylate 5 MG DAILY 09/11 1000 AC PO Amlodipine Besylate 5 MG DAILY 09/08 1615 DC 09/10 PO 0745 Ampicillin Sodium/ 3,000 MG Q6H 09/10 1900 CAN Sulbactam Sodium IV Sodium Chloride 100 ML Ampicillin Sodium/ 3,000 MG Q6H 09/08 0100 DC 09/10 Sulbactam Sodium IV 09/10 1859 1800 Sodium Chloride 100 ML Aspirin 81 MG DAILY 09/11 1000 AC PO Diphenhydramine HCl 25 MG Q6P PRN 09/10 1430 AC IV Diphenhydramine HCl 25 MG Q6P PRN 09/07 2215 DC IV Fentanyl Citrate 250 MCG .STK-MED ONE 09/10 1129 DC IM 09/10 1130 Fluoxetine HCl 20 MG DAILY 09/11 1000 AC PO Fluoxetine HCl 20 MG DAILY 09/09 1000 DC 09/10 PO 0745 Folic Acid 1 MG DAILY 09/11 1000 AC PO Folic Acid 1 MG DAILY 09/08 1000 DC 09/10 PO 0745 Hydromorphone HCl 0.5 MG Q4P PRN 09/10 1430 AC IV Hydromorphone HCl 0.5 MG Q4P PRN 09/07 2215 DC 09/09 IV 1742 Lactated Ringer's 1,000 ML Q10H 09/10 2045 AC 09/11 IV 0610 Lactated Ringer's 1,000 ML Q10H 09/09 1445 DC 09/10 IV 09/10 2044 1053 Lorazepam 0 Q1P PRN 09/10 1430 AC IV Lorazepam 0 Q1P PRN 09/07 2300 DC IV Metoprolol Tartrate 25 MG BID 09/10 2200 AC 09/10 PO 2124 Metoprolol Tartrate 25 MG BID 09/08 1451 DC 09/10 PO 0745 Midazolam HCl 2 MG .STK-MED ONE 09/10 1130 DC IM 09/10 1131 Ondansetron HCl 4 MG Q6P PRN 09/10 1430 AC IV Ondansetron HCl 4 MG Q6P PRN 09/07 2215 DC IV Oxycodone HCl 5 MG Q6-PRN PRN 09/10 1430 AC PO Oxycodone HCl 10 MG Q6-PRN PRN 09/10 1430 AC PO Patient Medication 1 ED .STK-MED ONE 09/10 1338 DC Teaching ED 09/10 1339 Last 24 Hrs of Lab/Elder Results Last 24 Hrs of Labs/Mics: Laboratory Tests 09/11/16 0635: Anion Gap 8, Estimated GFR > 60, BUN/Creatinine Ratio 12.9, CBC w Diff Pending, WBC Pending, RBC Pending, Hgb Pending, Hct Pending, MCV Pending, MCH Pending, RDW Pending, Plt Count Pending, MPV Pending, PUBS MCHC Pending Assessment/Plan Assessment: 71 Y/O Male presented with complaints of nausea, vomiting, abdominal pain with CAT scan and lab showing evidence of acute pancreatitis. His BISAP score on admission was 1. 1. Acute pancreatitis due to gallstone: -Postoperative day 1 status post laparoscopic cholecystectomy - Would continue IV fluids, but discontinued after the patient is tolerating diet well. 2. Acute cholecystitis status post laparoscopic cholecystectomy - Patient received 3 days of antibiotics - will discontinue IV antibiotics. He has been afebrile with negative cultures. 2. Chronic EtOH use: - CIWA score has been 0 - He is on Ativan IV when necessary which has not received any since admission 3. Hypertension: -Continue amlodipine and metoprolol XL. Restart Benzapril at the time of discharge. #4 hypoxemia-desaturation to 86% on room air. Titrate oxygen down as tolerated. Informed the patient case manager, if the patient needs any supplemental oxygen, would have to make arrangements in a.m. Reason unclear, likely differential- atelectasis. DVT prophylaxis withALPS FULL CODE STATUS Problem List: 1. History of adenomatous polyp of colon 2. GERD (gastroesophageal reflux disease) 3. Diverticula of colon 4. Pancreatitis Pain Ratin Pain Location: None Pain Goal: Pain 4 or less Pain Plan: Tylenol when necessary Tomorrow's Labs & Rationales: CBC, BMP JD LOVETT,AMIR 09/11/162038: Attending MD Review Statement Attending Statement Attending MD Statement: examined this patient, discuss w/resident/PA/TRAUMA MANAGER, agreed w/resident/PA/TRAUMA MANAGER, discussed with family, reviewed EMR data (avail), discussed with nursing Attending Assessment/Plan: Pt reports doing OK, denies pain, nausea, vomiting. Still requiring Oxygen. Plan for oxy down titration prior to d/c. HD stable, will f/u with cards as outpt. Appreciate surgery input. Rest of the plan as per resident's note
[2016-09-11 13:00] VITALS: BP 150/80
[2016-09-11 15:56] VITALS: BP 150/80
--- NOTE | 2016-09-11 16:13 | PN- General Surgery ---
Surgical Brief Attending Note Brief Attending Note: Patient examined, on clear liquids no shortness of breath or worsening abdominal pain recommend pulmonary toilet out of bed and continue present care as per medicine/cardiology.
--- NOTE | 2016-09-11 16:48 | PN- Cardiology ---
Subjective Subjective: The patient is stable. His diet is advancing. He is having no GI symptoms. He remains in atrial fibrillation with a rate below 100. Objective Vital Signs and I&Os Vital Signs Date Time Temp Pulse Resp B/P Pulse O2 O2 Flow FiO2 Ox Delivery Rate 09/11 1556 98.3 91 18 150/80 94 09/11 1300 98.3 84 20 150/80 94 Nasal 3.0L Cannula 09/11 1236 Nasal 3.0L Cannula 09/11 1235 99 Nasal 3.0L Cannula 09/11 0946 98.7 87 20 164/90 09/11 0946 98.7 87 20 164/90 09/11 0823 98.7 87 20 164/90 94 Nasal 4.0L Cannula 09/11 0800 98.7 87 20 164/90 09/11 0800 95 Nasal 4.0L Cannula 09/11 0626 94 Nasal 4.0L Cannula 09/11 0000 Nasal 4.0L Cannula 09/10 2310 98.1 80 20 148/80 93 Nasal Cannula 09/10 2124 92 158/84 09/10 1746 98.8 75 20 140/80 96 Nasal Cannula Intake & Output 09/11 1600 09/11 0800 09/11 0000 09/10 1600 09/10 0800 09/10 0000 Intake Total 825 064 0179 200 1260 780 Output Total 625 995 350 Balance 255 -695 489 784 4186 780 Intake, IV 400 800 200 900 300 Intake, Oral 480 300 480 360 480 Number 0 Bowel Movements Output, Urine 625 995 350 Physical Exam: He is in no distress HEENT exam is normal Chest is clear Heart is irregular rhythm with no murmurs There is no edema Current Medications: Current Medications Sig/Mariana Start time Last Medication Dose Route Stop Time Status Admin Albuterol Sulfate 3 ML Q6-PRN PRN 09/11 1230 AC 09/11 INH 1232 Amlodipine Besylate 5 MG DAILY 09/11 1000 AC 09/11 PO 0946 Ampicillin Sodium/ 3,000 MG Q6H 09/08 0100 DC 09/10 Sulbactam Sodium IV 09/10 1859 1800 Sodium Chloride 100 ML Aspirin 81 MG DAILY 09/11 1000 AC 09/11 PO 0945 Diphenhydramine HCl 25 MG Q6P PRN 09/10 1430 AC IV Fluoxetine HCl 20 MG DAILY 09/11 1000 AC 09/11 PO 0946 Folic Acid 1 MG DAILY 09/11 1000 AC 09/11 PO 0946 Hydromorphone HCl 0.5 MG Q4P PRN 09/10 1430 AC IV Lactated Ringer's 1,000 ML Q10H 09/10 2045 DC 09/11 IV 0610 Lactated Ringer's 1,000 ML Q10H 09/09 1445 DC 09/10 IV 09/10 2044 1053 Lorazepam 0 Q1P PRN 09/10 1430 AC IV Metoprolol Tartrate 25 MG BID 09/10 2200 AC 09/11 PO 0946 Ondansetron HCl 4 MG Q6P PRN 09/10 1430 AC IV Oxycodone HCl 5 MG Q6-PRN PRN 09/10 1430 AC PO Oxycodone HCl 10 MG Q6-PRN PRN 09/10 1430 AC PO Potassium Chloride 40 MEQ ONCE ONE 09/11 1445 DC 09/11 PO 09/11 1446 1448 Results Last 48 Hrs of Labs/Mics: Laboratory Tests 09/11/16 0635: Anion Gap 8, Estimated GFR > 60, BUN/Creatinine Ratio 12.9, CBC w Diff MAN DIFF ORDERED, RBC 3.98 L, MCV 99.0 H, MCH 33.0 H, RDW 13.3, MPV 9.4, Gran % 86.4 H, Lymphocytes % 6.0 L, Monocytes % 7.0, Eosinophils % 0.5, Basophils % 0.1, Absolute Granulocytes 16.2 H, Segmented Neutrophils 78 H, Band Neutrophils 7 H, Absolute Lymphocytes 1.1 L, Lymphocytes 8 L, Monocytes 6, Absolute Monocytes 1.3 H, Eosinophils 1, Absolute Eosinophils 0.1, Absolute Basophils 0, Platelet Estimate VERIFIED BY SMEAR, Normocytic RBCs VERIFIED, Normochromic RBCs VERIFIED, PUBS MCHC 33.3 09/10/16 0750: CBC w Diff NO MAN DIFF REQ, RBC 3.76 L, MCV 98.7 H, MCH 33.3 H, RDW 13.4, MPV 9.2, Gran % 85.5 H, Lymphocytes % 6.7 L, Monocytes % 7.2, Eosinophils % 0.5, Basophils % 0.1, Absolute Granulocytes 12.0 H, Absolute Lymphocytes 0.9 L, Absolute Monocytes 1.0 H, Absolute Eosinophils 0.1, Absolute Basophils 0, PUBS MCHC 33.7 Assessment/Plan Assessment/Plan The patient is stable. He remains in atrial fibrillation with a controlled rate. He is one day postoperative from laparoscopic cholecystectomy. His diet is advancing. I recommend starting him on anticoagulation tomorrow, presumably on discharge. We can go directly with a newer oral anticoagulant such as Eliquis 5 mg twice daily. He can be discharged on this medication. He will follow-up with cardiology as an outpatient. 1 Continue telemetry? Yes
--- NOTE | 2016-09-11 19:19 | NUR ---
PT OXYGEN SAT 94-95% ON 2L. PT AMBULATED ON ROOM AIR, SAT = 93% WITH MILD SHORTNESS OF BREATH.
[2016-09-12 01:07] VITALS: BP 170/90
[2016-09-12 08:00] VITALS: BP 141/85
[2016-09-12 08:28] LABS: ABSOLUTE BASOPHIL COUNT 0 /CUMM (0.0-0.2); ABSOLUTE EOSINOPHIL COUNT 0.2 /CUMM (0.0-0.7); ABSOLUTE GRANULOCYTE CT 14.1 /CUMM (1.4-6.5); ABSOLUTE LYMPH COUNT 1.1 /CUMM (1.2-3.4); ABSOLUTE MONOCYTE COUNT 1.2 /CUMM (0.10-0.60); BASOPHIL % 0.1 % (0.0-2.0); GRANULOCYTE % 84.9 % (42.2-75.2); HEMATOCRIT 36.4 % (42-52); MEAN CORPUSCULAR HGB 33.1 PG (27.0-31.0); MEAN CORPUSCULAR HGB CONC 33.7 G/DL (33.0-37.0); MEAN CORPUSCULAR VOLUME 98.3 FL (80.0-94.0); PLATELET COUNT 256 /CUMM (130-400)
[2016-09-12 08:53] VITALS: BP 141/85
[2016-09-12 09:14] LABS: WHITE BLOOD CELL COUNT 16.6 /CUMM (4.8-10.8)
[2016-09-12 09:31] VITALS: BP 141/85
--- NOTE | 2016-09-12 09:36 | PN- Housestaff ---
MEHREEN LOVETT,GUERO 09/12/16 0927: Subjective Follow-up For: Gallstone Pancreatitis Tele-Events Since Last Visit: Atrial Fibrillation 87-96bpm, occasional PVC's Subjective: I saw and examined the patient today morning He is doing well, offers no complaints. He appears little gasping for breath, no subjective SOB. No overnight events. Review of Systems Constitutional: Reports: see HPI. Comments: ROS negative except above. Objective Last 24 Hrs of Vital Signs/I&O Vital Signs Date Time Temp Pulse Resp B/P Pulse O2 O2 Flow FiO2 Ox Delivery Rate 09/12 0931 97.8 75 16 141/85 09/12 0930 97.8 75 16 141/85 09/12 0853 97.8 75 16 141/85 96 Non 1.0L ReBreather 09/12 0800 96 Nasal 1.0L Cannula 09/12 0107 98.0 80 18 170/90 95 Nasal 2.0L Cannula 09/12 0000 Nasal 1.0L Cannula 09/11 2214 98 168/96 09/11 1820 96 Nasal 2.0L Cannula 09/11 1600 Nasal 2.0L Cannula 09/11 1556 98.3 91 18 150/80 94 09/11 1300 98.3 84 20 150/80 94 Nasal 3.0L Cannula 09/11 1236 Nasal 3.0L Cannula 09/11 1235 99 Nasal 3.0L Cannula 09/11 0946 98.7 87 20 164/90 09/11 0946 98.7 87 20 164/90 Intake & Output 09/12 1600 09/12 0800 09/12 0000 Intake Total 300 600 Output Total Balance 300 600 Intake, Oral 300 600 Physical Exam General Appearance: Alert, Oriented X3, Cooperative Skin: No Rashes, No Breakdown HEENT: Atraumatic, PERRLA Neck: Supple Cardiovascular: Normal S1, Normal S2 Lungs: Clear to Auscultation, Normal Air Movement Abdomen: Normal Bowel Sounds, distended and tense Neurological: Normal Gait, Normal Speech Extremities: No Clubbing, No Cyanosis, No Edema Vascular: Normal Pulses, Pulses Symmetrical Current Medications: Current Medications Sig/Mariana Start time Last Medication Dose Route Stop Time Status Admin Albuterol Sulfate 3 ML Q6-PRN PRN 09/11 1230 AC 09/11 INH 1232 Amlodipine Besylate 5 MG DAILY 09/11 1000 AC 09/12 PO 0930 Aspirin 81 MG DAILY 09/11 1000 AC 09/12 PO 0930 Diphenhydramine HCl 25 MG Q6P PRN 09/10 1430 AC IV Fluoxetine HCl 20 MG DAILY 09/11 1000 AC 09/12 PO 0930 Folic Acid 1 MG DAILY 09/11 1000 AC 09/12 PO 0930 Hydromorphone HCl 0.5 MG Q4P PRN 09/10 1430 AC IV Lactated Ringer's 1,000 ML Q10H 09/10 2045 DC 09/11 IV 0610 Lorazepam 0 Q1P PRN 09/10 1430 AC IV Metoprolol Tartrate 25 MG BID 09/10 2200 AC 09/12 PO 0931 Ondansetron HCl 4 MG Q6P PRN 09/10 1430 AC IV Oxycodone HCl 5 MG Q6-PRN PRN 09/10 1430 AC PO Oxycodone HCl 10 MG Q6-PRN PRN 09/10 1430 AC PO Potassium Chloride 40 MEQ 1230 ONE 09/12 1230 AC PO 09/12 1231 Potassium Chloride 40 MEQ ONCE ONE 09/12 1030 DC 09/12 PO 09/12 1031 1033 Potassium Chloride 40 MEQ ONCE ONE 09/11 1445 DC 09/11 PO 09/11 1446 1448 Last 24 Hrs of Lab/Elder Results Last 24 Hrs of Labs/Mics: Laboratory Tests 09/12/16 0700: Anion Gap 6, Estimated GFR > 60, BUN/Creatinine Ratio 18.6, CBC w Diff NO MAN DIFF REQ, RBC 3.70 L, MCV 98.3 H, MCH 33.1 H, RDW 13.0, MPV 9.0, Gran % 84.9 H, Lymphocytes % 6.6 L, Monocytes % 7.4, Eosinophils % 1.0, Basophils % 0.1, Absolute Granulocytes 14.1 H, Absolute Lymphocytes 1.1 L, Absolute Monocytes 1.2 H, Absolute Eosinophils 0.2, Absolute Basophils 0, PUBS MCHC 33.7 Assessment/Plan Assessment: 71 Y/O Male presented with complaints of nausea, vomiting, abdominal pain with CAT scan and lab showing evidence of acute pancreatitis. His BISAP score on admission was 1. 1. Acute pancreatitis due to gallstone: -Postoperative day 1 status post laparoscopic cholecystectomy - Would continue IV fluids, but discontinued after the patient is tolerating diet well. 2. Acute cholecystitis status post laparoscopic cholecystectomy - Patient received 3 days of antibiotics - will discontinue IV antibiotics. He has been afebrile with negative cultures. 3. New onset Atrial Fibrillation - Patient developed atrial fibrillation - He is started on eliquies 5mg BID and discharged with that medication. 4. Chronic EtOH use: - CIWA score has been 0 - He is on Ativan IV when necessary which has not received any since admission 5. Hypertension: -Continue amlodipine and metoprolol XL. Restart Benzapril at the time of discharge. 6 hypoxemia-desaturation to 86% on room air. - Resolved, doing better today on room air. 7. Hypokalemia - 3.4 today Repleted with Kdur 40mg once. DVT prophylaxis withALPS FULL CODE STATUS Problem List: 1. Transaminitis 2. Gall stones 3. Pancreatitis 4. Atrial fibrillation Pain Ratin Pain Location: chest pain Pain Goal: Pain 4 or less Pain Plan: tylenol PRN Tomorrow's Labs & Rationales: none JD [facility] 09/12/16 1004: Attending MD Review Statement Attending Statement Attending MD Statement: examined this patient, discuss w/resident/PA/CUPOLA MECHANIC, agreed w/resident/PA/CUPOLA MECHANIC, discussed with family, reviewed EMR data (avail), discussed with nursing Attending Assessment/Plan: reports doing better this morning. Had some confusion overnight but improved this morning. Daughter at the bedside. Pt being d/c home today, will f/u with Cards as outpt. Both patient and daughter in agreement with the plan.
[2016-09-12] MEDS ORDERED: ELIQUIS5 M1 PO (09:51)
== END 2016-09-12 11:12 | DRG 418 ==
LOC: ENRESERVTM → ENRESERVDT → ERH 18:08 → ENPENDDIS 21:02 → ERHI 21:02 → 2NB 21:02 → 1NO 09-10 13:37
PROVIDERS: Emergency Medicine; Internal Medicine; Internal Medicine Endocrinology, Diabetes & Metabolism; Internal Medicine Hematology & Oncology; ADMIT Internal Medicine
PROC: 0FT44ZZ Resection of Gallbladder, Percutaneous Endoscopic Approach (ICD-10-PCS; principal; 2016-09-10)
DX: K85.10 Biliary acute pancreatitis without necrosis or infection (principal); K83.0 Cholangitis; K80.00 Calculus of gallbladder with acute cholecystitis without obstruction; I48.91 Unspecified atrial fibrillation; I10 Essential (primary) hypertension; K21.9 Gastro-esophageal reflux disease without esophagitis; Z87.891 Personal history of nicotine dependence; E78.00 Pure hypercholesterolemia, unspecified; K42.9 Umbilical hernia without obstruction or gangrene; R09.02 Hypoxemia; Z72.89 Other problems related to lifestyle; K44.9 Diaphragmatic hernia without obstruction or gangrene; E78.5 Hyperlipidemia, unspecified; Z86.010 Personal history of colon polyps
CPT/HCPCS: 1NSP; 2NBP; 74181; 36415; 74176; 82436; 88304; 93005; 93010; 96374; 96375; J0131; J1200; J1650; J2405; J3490; J7040; J7120